=== PATIENT | female | born 1940 | race American Indian/Alaskan Native ===

== ENCOUNTER 2016-12-13 13:45 | Inpatient (IN) | payer MEDICARE, MEDICAID ==
[2016-12-13 13:45] VITALS: BMI 26.8
[2016-12-13] MEDS ORDERED: Sodium Chloride 0.9% 1,000 ML IV STA (14:28)
[2016-12-13 14:52] LABS: VENOUS BLOOD GAS BASE EXCESS 2.6 mmol/L (0.0-2.0); VENOUS BLOOD GAS PO2 39 mm/Hg (30-55); VENOUS BLOOD PH 7.34 (7.32-7.43)
--- NOTE | 2016-12-13 14:55 | ED PDOC ---
Arrival/HPI - General Historian: Patient, Family (daughter in law) - History of Present Illness Time/Duration: Other (last night) Symptom Onset: Sudden Symptom Course: Worsening Context: Home <Heidy Perez - Last Filed: 12/13/16 17:18> <Jackson Garrett - Last Filed: 12/13/16 17:54> - General Chief Complaint: Altered Mental Status Time Seen by Provider: 12/13/16 14:09 - History of Present Illness Narrative History of Present Illness (Text): 12/13/16 14:49 Patient is a 76 y/o with pmh of dementia, liver cirrhosis, htn, afib/aflutter, gastroporesis and degenerative arthritis sent by PMD secondary to recurrent hallucination and delusion. As per patient's daughter in law, patient has a h/o delusions and hallucination, and was admitted in 06/09 for the same symptoms. Patient was discharged with Haldol. Then last night the symptom reoccurred. Patient was seeing things that are not there and was not making sense. Patient is currently a&ox3, c/o lower back pain. Patient admits to feeling a little light headed and dizzy. patient denies headache, denies falls, denies fever or chills. Patient admits to cough productive with whitish sputum . Patient denies abdominal pain, denies dysuria. Denies lack of appetite or lack or sleep. Patient is not aware of her delusions and hallucinations. (Heidy Perez) Past Medical History - Provider Review Nursing Documentation Reviewed: Yes - Travel History Have you recently traveled outside [place] w/in the past 3 mons?: No - Infectious Disease Hx of Infectious Diseases: None - Tetanus Immunization Tetanus Immunization: Unknown - Cardiac Hx Cardiac Disorders: Yes Hx Cardiac Arrhythmia: Yes Hx Hypertension: Yes - Pulmonary Hx Respiratory Disorders: No - Neurological Hx Neurological Disorder: Yes Hx Dementia: Yes Hx Dizziness: Yes - HEENT Hx HEENT Disorder: Yes Hx Glaucoma: Yes Other/Comment: wears glasses - Renal Hx Renal Disorder: No - Endocrine/Metabolic Hx Endocrine Disorders: Yes Hx Diabetes Mellitus Type 2: Yes - Hematological/Oncological Hx Blood Disorders: Yes Hx Cirrhosis: Yes - Integumentary Hx Dermatological Disorder: No - Musculoskeletal/Rheumatological Hx Falls: Yes - Gastrointestinal Hx Gastrointestinal Disorders: Yes (GASTROPARESIS,GASTROENTERITIS) Hx Gastroesophageal Reflux: Yes - Genitourinary/Gynecological Hx Genitourinary Disorders: No - Psychiatric Hx Anxiety: Yes Hx Depression: Yes Hx Panic Disorder: Yes Hx Substance Use: No - Past Surgical History Past Surgical History: Unable to Obtain - Surgical History Hx Orthopedic Surgery: Yes - Anesthesia Hx Anesthesia Reactions: No Hx Malignant Hyperthermia: No - Suicidal Assessment Feels Threatened In Home Enviroment: No <Heidy Perez - Last Filed: 12/13/16 17:18> Family/Social History - Physician Review Nursing Documentation Reviewed: Yes Family/Social History: No Known Family HX Smoking Status: Unknown If Ever Smoked Hx Alcohol Use: Yes Hx Substance Use: No Hx Substance Use Treatment: No <Heidy Perez - Last Filed: 12/13/16 17:18> Allergies/Home Meds <Heidy Perez - Last Filed: 12/13/16 17:18> <Jackson Garrett - Last Filed: 12/13/16 17:54> Allergies/Adverse Reactions: Allergies acetaminophen Allergy (Verified 12/13/16 13:54) NAUSEA aspirin Allergy (Verified 12/13/16 13:54) gi bleed bee pollen Allergy (Verified 12/13/16 13:54) ANAPHYLAXIS haloperidol [From Haldol] Allergy (Verified 12/13/16 13:54) hallucinations haloperidol lactate [From Haldol] Allergy (Verified 12/13/16 13:54) hallucinations Penicillins Allergy (Verified 12/13/16 13:54) RASH Review of Systems - Review of Systems Constitutional: Normal Eyes: Normal ENT: Normal Respiratory: Cough, Sputum (white). absent: SOB, Wheezing Cardiovascular: Normal Gastrointestinal: Normal Genitourinary Female: Normal Musculoskeletal: Normal, Back Pain Skin: Normal Neurological: Dizziness. absent: Headache, Focal Weakness, Gait Changes, Facial Droop, Disequilibrium, Seizure Endocrine: Normal Hemo/Lymphatic: Normal Psychiatric: Other (hallucination and delusions) <Heidy Perez - Last Filed: 12/13/16 17:18> Physical Exam Finger Stick Blood Glucose: 104 <Heidy Perez - Last Filed: 12/13/16 17:18> Medical Decision Making <Heidy Perez - Last Filed: 12/13/16 17:18> - Lab Interpretations I have reviewed the lab results: Yes <Jackson Garrett - Last Filed: 12/13/16 17:54> ED Course and Treatment: 12/13/16 14:59 Patient is a 76 y/o with pmh of dementia, liver cirrhosis, htn, afib/aflutter, gastroporesis and degenerative arthritis sent by PMD secondary to hallucination and delusion. Differentials: Mental status changes secondary to infection/sepsis, r/o CVA, r/ o hepatic encephalopathy. Plan: cbc, cmp, ammonia level, ua bcx, ekg, chest x-ray , alcohol and tylenol and asa level, CT head w/o contrast. 1 L ns labetalol 10 mg iv for htn 12/13/16 17:19 Patient's BP improved to 154/74 after the labetalol. Patient has yeast in her urinalysis, however patient denies vaginal discharge, and denies dysuria. Normal tox screen, ammonia level is less than 9. Basci labs were normal. Psych consulted to evaluate patient. (Heidy Perez) Patient seen and examined with resident. Came up with treatment and disposition plan with resident. The patient is a 76 year old female who is sent into the emergency department for recurrent hallucination and delusion. Patient daughter in law states patient has been intermittently agitated and confused. Additional HPI detail as noted by the resident. On physical examination patient is hypertensive otherwise not other acute findings. EKG, HEAD CT, Chest X-ray, lab work and Urinalysis ordered. Patient given IV Fluids. EKG shows normal sinus rhythm at 69 BPM with sinus arrhythmia and 1st degree AV block. Interpreted by me. 12/13/16 16:36 Labs reviewed. WBC nl. UA negative. CXR negative. No suspicion for infection at this time. CT Head negative and no longer dizziness or lightheaded. Not likely CVA or TIA. Ammonia negative. Not hepatic encephalopathy. Patient with a history of similar behavior and it was do to psych issues. HTN improved with medication. Patient comfortable and in no distress. She is medically cleared for psychiatric evaluation. PES was called and pending consult. 12/13/16 17:53 Case discussed with PES Screener and patient will be admitted to Dr. Darnell for Dementia with Behavioral disturbances. (Jackson Garrett) - Lab Interpretations Lab Results: 12/13/16 14:30 12/13/16 14:30 Lab Results 12/13/16 16:22: Ammonia < 9 L 12/13/16 15:40: Urine Color Yellow, Urine Appearance Clear, Urine pH 6.0, Ur Specific Waldron 1.020, Urine Protein Trace H, Urine Glucose (UA) Negative, Urine Ketones Negative, Urine Blood Negative, Urine Nitrate Negative, Urine Bilirubin Negative, Urine Urobilinogen 1.0 H, Ur Leukocyte Esterase Negative, Urine RBC 0 - 2, Urine WBC 0 - 2, Ur Epithelial Cells 1 - 3, Amorphous Sediment Small, Urine Bacteria Many, Urine Other Uyeast 12/13/16 14:30: Acetaminophen < 10.0 L 12/13/16 14:30: Salicylates < 1 L 12/13/16 14:30: PT 11.5, INR 1.06, APTT 26.8 12/13/16 14:30: TSH 3rd Generation 3.73, Alcohol, Quantitative < 10 12/13/16 14:30: pO2 39, VBG pH 7.34, VBG pCO2 55.0, VBG HCO3 29.7 H, VBG O2 Sat (Calc) 72.1 H, VBG Base Excess 2.6 H 12/13/16 14:30: Sodium 132, Potassium 3.7, Chloride 98, Carbon Dioxide 27, Anion Gap 11, BUN 8, Creatinine 0.7, Est GFR ( Amer) > 60, Est GFR (Non- Af Amer) > 60, Random Glucose 91, Calcium 9.3, Phosphorus 3.4, Magnesium 1.7, Total Bilirubin 0.4, AST 25, ALT 17, Alkaline Phosphatase 60, Lactate Dehydrogenase 352, Total Creatine Kinase 38, Troponin I < 0.01, Total Protein 7.3, Albumin 4.0, Globulin 3.2, Albumin/Globulin Ratio 1.3 12/13/16 14:30: WBC 5.5, RBC 3.78, Hgb 10.9 L, Hct 30.0 L, MCV 79.4 L, MCH 28.8 , MCHC 36.3, RDW 13.8, Plt Count 128, MPV 8.8, Gran % 56.9, Lymph % (Auto) 34.1 , [place] % (Auto) 7.5 H, Eos % (Auto) 1.3 L, Baso % (Auto) 0.2, Gran # 3.12, Lymph # 1.9, [place] # 0.4, Eos # 0.1, Baso # 0.01 - RAD Interpretation Radiology Orders: 12/13/16 14:27 CHEST PORTABLE [RAD] Stat 12/13/16 15:10 HEAD W/O CONTRAST [CT] Stat - Medication Orders Current Medication Orders: Discontinued Medications Acetaminophen (Tylenol 325mg Tab) 650 mg PO STAT STA Stop: 12/13/16 15:09 Sodium Chloride (Sodium Chloride 0.9%) 1,000 mls @ 999 mls/hr IV .Q1H1M STA Stop: 12/13/16 15:28 Last Admin: 12/13/16 14:44 Dose: 999 mls/hr Labetalol HCl (Trandate) 10 mg IV STAT STA Stop: 12/13/16 15:01 Last Admin: 12/13/16 15:30 Dose: 10 mg Labetalol HCl (Trandate) Confirm Administered Dose 100 mg .ROUTE .STK-MED ONE Stop: 12/13/16 15:13 Last Admin: 12/13/16 15:40 Dose: <Heidy Perez - Last Filed: 12/13/16 17:18> - PA / CERAMIC TILE INSTALLER / Resident Statement MD/DO has reviewed & agrees with the documentation as recorded. MD/DO has examined the patient and agrees with the treatment plan. - Scribe Statement The provider has reviewed the documentation as recorded by the Scribe <Jackson Garrett - Last Filed: 12/13/16 17:54> - Scribe Statement Any Tucker Provider Scribe Attestation: All medical record entries made by the Scribe were at my direction and personally dictated by me. I have reviewed the chart and agree that the record accurately reflects my personal performance of the history, physical exam, medical decision making, and the department course for this patient. I have also personally directed, reviewed, and agree with the discharge instructions and disposition. (Jackson Garrett) Disposition/Present on Arrival - Present on Arrival History of DVT/PE: No History of Uncontrolled Diabetes: No Urinary Catheter: No History of Decub. Ulcer: No History Surgical Site Infection Following: None <Heidy Perez - Last Filed: 12/13/16 17:18> - Present on Arrival Any Indicators Present on Arrival: No - Disposition Have Diagnosis and Disposition been Completed?: Yes Disposition Time: 17:54 Patient Plan: Admission <Jackson Garrett - Last Filed: 12/13/16 17:54> - Disposition Diagnosis: Dementia Disposition: HOSPITALIZED Condition: FAIR Referrals: Jay Yang MD [Primary Care Provider] - Follow up with primary
[2016-12-13] MEDS ORDERED: Labetalol 5 mg/ml Inj 20ML IV STA (15:00)
[2016-12-13 15:04] LABS: ALB/GLOB RATIO 1.3 (1.1-1.8); ALT/SGPT 17 U/L (7-56); AST/SGOT 25 U/L (15-39); BASO # 0.01 K/mm3 (0.0-2.0); BASO % 0.2 % (0.0-3.0); BLOOD UREA NITROGEN 8 mg/dL (7-21); CALCIUM 9.3 mg/dL (8.4-10.5); EOS # 0.1 (0.0-0.7); EOS % 1.3 % (1.5-5.0); GFR AFRICAN-AMERICAN > 60; GFR NON-AFRICAN AMERICAN > 60; GRAN # 3.12 (1.4-6.5); GRAN % 56.9 % (50.0-68.0); HEMOGLOBIN 10.9 gm/dL (12.0-16.0); LYMPH # 1.9 (1.2-3.4); LYMPH % 34.1 % (22.0-35.0); MAGNESIUM 1.7 mg/dL (1.7-2.2); MEAN CELL VOLUME 79.4 fL (80.0-105.0); MEAN CORPUSCULAR HEMOGLOBIN 28.8 pg (25.0-35.0); MEAN CORPUSCULAR HGB CONC 36.3 g/dl (31.0-37.0); MEAN PLATELET VOLUME 8.8 fl (7.0-11.0); MONO # 0.4 (0.1-0.6); MONO % 7.5 % (1.0-6.0); PLATELET COUNT 128 10^3/uL (120.0-450.0); RBC 3.78 10^6/uL (3.5-6.1); RED CELL DISTRIBUTION WIDTH 13.8 % (11.5-14.5); WHITE BLOOD COUNT 5.5 10^3/ul (4.5-11.0)
--- NOTE | 2016-12-13 15:09 | RAD ---
HISTORY: Cough COMPARISON: 06/19/2016 FINDINGS: LUNGS: The lungs are well inflated and clear. PLEURA: No significant pleural effusion identified, no pneumothorax apparent. CARDIOVASCULAR: Normal. OSSEOUS STRUCTURES: No significant abnormalities. VISUALIZED UPPER ABDOMEN: Normal. OTHER FINDINGS: None. IMPRESSION: No active pulmonary disease.
[2016-12-13 15:11] LABS: INR 1.06 (0.93-1.08); PARTIAL THROMBOPLASTIN TIME 26.8 Seconds (23.7-30.8); PROTHROMBIN TIME 11.5 Seconds (9.9-11.8)
[2016-12-13] MEDS ORDERED: Labetalol 5 mg/ml Inj 20ML ONE (15:12)
[2016-12-13 15:19] LABS: TROPONIN I < 0.01 ng/mL
[2016-12-13 15:48] LABS: URINE APPEARANCE CLEAR (CLEAR); URINE BILIRUBIN NEGATIVE (NEGATIVE); URINE BLOOD NEGATIVE (NEGATIVE); URINE COLOR YELLOW (YELLOW); URINE GLUCOSE (UA) NEGATIVE (NEGATIVE); URINE LEUKOCYTE ESTERASE NEGATIVE Leu/uL (NEGATIVE); URINE NITRATE NEGATIVE (NEGATIVE); URINE PROTEIN TRACE mg/dL (<30 mg/dL)
[2016-12-13 15:54] LABS: URINE RBC 0 - 2 /hpf (0-2); URINE WBC 0 - 2 /hpf (0-6)
[2016-12-13 15:55] LABS: URINE AMORPHOUS SEDIMENT SMALL; URINE BACTERIA MANY (NEG)
--- NOTE | 2016-12-13 15:58 | CT ---
PROCEDURE: CT HEAD WITHOUT CONTRAST. HISTORY: AMS COMPARISON: None available. TECHNIQUE: Axial computed tomography images were obtained through the head/brain without intravenous contrast. Radiation dose: Total exam DLP = 689 mGy-cm. This CT exam was performed using one or more of the following dose reduction techniques: Automated exposure control, adjustment of the mA and/or kV according to patient size, and/or use of iterative reconstruction technique. FINDINGS: HEMORRHAGE: No intracranial hemorrhage. BRAIN: No mass effect or edema. No atrophy or chronic microvascular ischemic changes. VENTRICLES: Unremarkable. No hydrocephalus. CALVARIUM: Unremarkable. PARANASAL SINUSES: Unremarkable as visualized. No significant inflammatory changes. MASTOID AIR CELLS: Unremarkable as visualized. No inflammatory changes. OTHER FINDINGS: None. IMPRESSION: Normal CT of the Head.
[2016-12-13 17:19] VITALS: O2SAT 96
--- NOTE | 2016-12-13 21:47 | PCM.PSYCH ---
Initial Psychiatric Evaluation - Initial Psychiatric Evaluation Legal Status: Capacity Chief Complaint (in patient's own words): I don' Know why I am Here Patient's Reaction to Hospitalization: Indifferent History of Present Illness and Precipitating Events: According to Er Record patient wa seeing things and hearing things that were not there. Patient denies this. Current Medications: Patient unaware of names of any medications. She knows they are tranqilers, but doesn' take them. Was given Labetol in ER. Past Psychiatric History - Past Psychiatric History Prior Psychiatric Treatment: Hosp here [place]2016 [id number] [facility] [place] [facility] [place] of ETOH/Drug Use: none History of Family Illness: Daughter 2 years ago frm [place] of lung. in 1991 Pertinent Medical Hx (Current Medical&Sleep Prob, Allergies): Allergies Allergy/AdvReac Type Severity Reaction Status Date / Time acetaminophen Allergy NAUSEA Verified 12/13/16 13:54 aspirin Allergy gi bleed Verified 12/13/16 13:54 bee pollen Allergy ANAPHYLAXIS Verified 12/13/16 13:54 haloperidol [From Haldol] Allergy hallucinati Verified 12/13/16 13:54 ons haloperidol lactate Allergy hallucinati Verified 12/13/16 13:54 [From Haldol] ons Penicillins Allergy RASH Verified 12/13/16 13:54 Risperidone [Risperdal] 0.25 mg PO BID #60 tablet 06/24/16 Ziprasidone [Geodon] 40 mg PO BID #60 cap 06/24/16 diltiaZEM CD [Cardizem CD] 120 mg PO DAILY #30 06/24/16
--- NOTE | 2016-12-13 21:49 | PCM.PSYCH ---
Initial Psychiatric Evaluation - Initial Psychiatric Evaluation Legal Status: Capacity Chief Complaint (in patient's own words): I don' Know why I am Here Patient's Reaction to Hospitalization: Indifferent History of Present Illness and Precipitating Events: According to Er Record patient wa seeing things and hearing things that were not there. Patient denies this. Current Medications: Active Medications Generic Name Dose Route Start Last Admin Trade Name Freq PRN Reason Stop Dose Admin Metoclopramide HCl 5 mg 12/14/16 08:00 Reglan PO BID GRETA Risperidone 0.25 mg 12/13/16 21:42 Risperdal Tab PO Q4H PRN Agitation Zaleplon 5 mg 12/13/16 21:41 Sonata PO HS PRN Insomnia Past Psychiatric History - Past Psychiatric History Prior Psychiatric Treatment: Hosp here 05/2016 [id number] At [facility]: [facility] Pertinent Medical Hx (Current Medical&Sleep Prob, Allergies): Allergies Allergy/AdvReac Type Severity Reaction Status Date / Time acetaminophen Allergy NAUSEA Verified 12/13/16 13:54 aspirin Allergy gi bleed Verified 12/13/16 13:54 bee pollen Allergy ANAPHYLAXIS Verified 12/13/16 13:54 haloperidol [From Haldol] Allergy hallucinati Verified 12/13/16 13:54 ons haloperidol lactate Allergy hallucinati Verified 12/13/16 13:54 [From Haldol] ons Penicillins Allergy RASH Verified 12/13/16 13:54 Risperidone [Risperdal] 0.25 mg PO BID #60 tablet 06/24/16 Ziprasidone [Geodon] 40 mg PO BID #60 cap 06/24/16 diltiaZEM CD [Cardizem CD] 120 mg PO DAILY #30 06/24/16
--- NOTE | 2016-12-13 22:33 | HP ---
HISTORY OF PRESENT ILLNESS: The patient is a 76-year-old female brought to the Emergency Room apparently by family. Reported to the staff in the ER that she had been seeing things and hearing things last night, even though patient denies all this. The patient states at times she gets anxious and she is depressed since her daughter 2 years ago. PAST MEDICAL HISTORY: She has previous psychiatric hospitalizations here in 2015 and in 2012. She has had multiple medical problems, including AFib with rapid ventricular rate. She has history of osteoarthritis, history of positive dementia. She has a history of previous psychotic symptomatology. The patient has a history also of hypertension. She has a history of hyperlipidemia, diet- controlled diabetes, gastroparesis, nonobstructive coronary artery disease. HOME MEDICATIONS: Include supposedly Geodon 40 mg twice a day and Risperdal 0.5 mg b.i.d. The patient states she does not take any of these. She also has Xalatan eyedrops which she has not been taking. She has a history of taking Reglan 5 mg twice a day. The patient has taken p.r.n. tramadol for arthritic pain. PERSONAL HISTORY: She lives alone in public housing. She has a grandson and granddaughter plus 5 grandchildren. She has a daughter who 2 years ago from [place] of the lung. Her in the early . The patient supposedly has a history of cirrhosis, but her laboratory data is normal. LABORATORY DATA: As follows: Her white count is 5500, hemoglobin of 10.9, platelet count 128,000. The patient's metabolic profile was all totally within normal range. Ammonia level was less than 9. TSH 3.73. The patient's urine is clear with a trace of protein and many bacteria. The patient's blood gases, the pO2 is 39, venous pH of 7.34, pCO2 55. Venous O2 saturation 92.1%. Her urine for toxicology, she had no alcohol in her system. The patient's EKG showed first degree AV block and irregular sinus rhythm. She had chest x-ray, showed no active disease. CAT scan of the head showed no atrophy, hemorrhage, or microvascular disease, according to interpretation. CURRENT REVIEW OF SYSTEMS: GENERAL: The patient states she has a history of slight dizziness at times, . EENT: She has occasional blurriness. She was once told she has glaucoma, but she is not taking any drops. PULMONARY: No complaints , has not smoked for several years.CARDIOVASCULAR: No Chest pain,SOB The patient has been told she has hypertension,GI: has had liver problems. No abdominal pain : No bleeding SKIN: No rashes. MUSCULOSKELETAL: She has pain in her back, pain in her knees.NEUROLOGICAL: The patient says at times she gets a slight tremor and some unsteadiness of gait. Problems with memory. PSYCHIATRIC : Nervousness at times. PHYSICAL EXAMINATION: VITAL SIGNS: Blood pressure of 154/74, pulse 80, respirations 18 per minute, O2 saturation 96%. HEAD: Normocephalic. EYES, EARS, NOSE, AND THROAT: EOMs full, no nystagmus. Vision and hearing appear normal. NECK: Supple. No bruits. LUNGS: Clear. HEART: Irregular/irregular rhythm. ABDOMEN: Soft, nontender. EXTREMITIES: No clubbing or edema. NEUROMUSCULAR: Her gait is somewhat slow with some slightly broad-based gait. SKIN: No abnormal pigmentations. GENITOURINARY: No CVA tenderness. NEUROLOGIC: Cranial nerves II-XII intact. Tongue, full range of motion. Shoulder shrug normal. No nystagmus. EOMs full. Tongue, no dyskinetic movements. The patient's sensory findings appear intact. No pathological reflexes. Babinskis down. PSYCHIATRIC MENTAL STATUS: She is awake, she is alert, slightly anxious, somewhat worried and confused as to why she is here. She is totally oriented x 3. Spells the words "world" and "house" forward and reverse. Recalls 1 of 3 objects after 5 minutes. Denies hallucinations or paranoia. Admits being depressed. There is no suicidal ideation. Currently has no hallucinations, no delusions. The patient's fund of knowledge is low normal. The patient's judgment and insight appear questionable, although she appears alert and coherent and able to carry on a rational conversation. IMPRESSION: The patient has probable mild neurocognitive impairment, history of psychotic symptoms in the past, none now. She has a history of hypertension , history of atrial fibrillation, history of first degree atrioventricular block , history of osteoarthritis, history in the past of glaucoma. Positive personal strengths are loyalty to family and cooperative with care. PLAN: We will keep under close observation, q. 15 minutes. Will order Reglan. Will order p.r.n. Risperdal for now. Will order p.armando.arleen. Nicolasata for sleep. Will get medical on cardiological consults with her attending physician, Dr. Yang, and Dr. Thurman, and I will discuss with staff. Estimated length of stay is five days. Criteria for discharge: Clear sensorium. Lars Darnell MD cc: [id number] TT: 12/13/2016 22:32:43 crystal MTDArmaan
--- NOTE | 2016-12-13 23:33 | CARD ---
APPROVED REPORT EKG Measurement Heart [id number] <Conclusion> Sinus rhythm with marked sinus arrhythmia with 1st degree AV block Otherwise normal ECG
[2016-12-14 08:20] LABS: FREE T4 1.06 ng/dL (0.78-2.19)
--- NOTE | 2016-12-14 12:31 | PCM.BM ---
<Candy Payne - Last Filed: 12/14/16 12:25> Treatment Plan Problems - Problems identified on initial assessmt delusion Date Initiated: 12/14/16 Time Initiated: 12:32 Assessment reference: NA Status: Active Priority: 1 Treatment assets and liabiliti Patient Assests: cooperative, negotiates basic needs Patient Liabilities: live alone, imparied memory - Milieu Protocol Maintain good personal hygiene: daily Encourage regular showers, every shift Remind patient to perform daily oral care, every shift Assist patient to perform ADL's Conduct patient checks and document Observation sheet: Q15 minutes Maintain personal safety: every shift Educate patient to report safety concerns to staff, every shift Monitor environment for contraband/sharps Medication safety: Monitor for expected outcome, potential side effects: every shift, Assess barriers to learning: every shift, Assess readiness for medication education: every shift <Jazmín Webber - Last Filed: 12/20/16 08:24> Family Contact Family involvement: Family/SO is involved Family contact: Patient agrees to contact Family contact name: Kurtis Royal(grandchildren) Family contacted how many times per week?: 2 - Goals for Treatment Patient goals for treatment: "To get back to normal."
--- NOTE | 2016-12-14 19:28 | PCM.PYCHPN ---
Psychiatric Progress Note - Psychiatric Progress Note Patient seen today, length of contact: 15 minutes Patient Chief Complaint: I don' Know why I am Here DSM 5 Symptoms Update: Recent memory impairment and anxiety Medication Change: Yes Medical Record Reviewed: Yes Consults ordered or reviewed: Dr. Thurman and Dr. Yang Mental Status Examination - Cognitive Function Orientation: Person, Place, Situation, Time Memory: Impaired Attention: WNL Concentration: WNL Association: WNL Fund of Knowledge: WN Decription of patient's judgement and insights: Judgement and insight fair. - Mood Mood: Depressed, Anxious - Affect Affect: Flat - Homicidal Ideation Homicidal Ideation: No
--- NOTE | 2016-12-14 20:43 | PN ---
DATE: 12/14/2016 HISTORY OF PRESENT ILLNESS: The patient is a 76-year-old female brought to the Emergency Room yester day by her grandson. According to ER notes, the patient was supposedly paranoid, hearing voices. My history taking yesterday and again today, there is no evidence of this. She has some impairment in recent memory. She denies any hallucinations at this point. She complains of anxiety, nervousness. She appears somewhat depressed. No suicidal ideation. Recalls 2-3 objects after 3 minutes, oriente d x 3. The patient walked slowly with the use of a walker. According to nurses notes, slept through the night. CURRENT MEDICATIONS: Include Risperdal 0.25 mg q. 4 hours p.r.n., Sonata 5 mg at bedtime p.r.n. She is also on diltiazem 30 q.i.d. today and 120 p.o. daily starting tomorrow. She is also on Reglan 5 mg b.i.d. LABORATORY DATA: No new laboratory data to report except for vitamin D level of 26.5. Her TSH, T3, T4 are all within normal range. B12 is 385. Ammonia level is less than 9. The patient was seen in consultation by a chief controller center yesterday and today and was reviewed and appre ciated. VITAL SIGNS: Blood pressure is 131/61, pulse 62, respirations 20 per minute and afebrile. IMPRESSION: Mild neurocognitive impairment, a supposed history in the past of psychotic symptomatolo gy, none apparent now. She has generalized anxiety, mild to moderate depression. The patient has a history of first degree arteriovenous block, atrial fibrillation, hypertension. She also has a histo ry of mild dementia. PLAN: We will order Ativan 1.5 mg t.i.d. for anxiety. Will order Remeron 15 mg at bedtime for depre ssed mood, insomnia. We will monitor closely mental status. Also will order vitamin D 2000 Internat ional Units daily and will continue under close observation. Lars Darnell MD cc: [phone] TT: 12/14/2016 20:42:28 Confirmation # [id number] Dictation # [id number] rn
--- NOTE | 2016-12-14 20:59 | CP.PCM.PCO ---
Physician Communication Note - Physician Communication Note Physician Communication Note: Not eating(40#loss)/Not taking meds-worsening @ home
--- NOTE | 2016-12-14 21:35 | CON ---
DATE: 12/14/2016 REASON FOR CONSULTATION: Cardiac evaluation, history of paroxysmal atrial fibrillation, abnormal EKG , admitted to psych floor with behavioral disturbance. BRIEF CLINICAL HISTORY: This is a 76-year-old female with a past medical history of hypertension; di abetes, diet controlled; depression; dementia; gastroparesis; history of paroxysmal atrial fibrillati on, now in the 90s, normal sinus, admitted to psychiatric floor with behavioral disturbance and possi ble dementia. Cardiology consult was called. The patient denies any chest pain, shortness of breath , any palpitation. PAST MEDICAL HISTORY: Significant for hypertension, diabetes, hypertension, hyperlipidemia, depressi on, dementia and gastroparesis. MOST RECENT CARDIAC WORKUP FOLLOWS: The patient had a stress test 05/30/2013 that was abnormal du e to the cardiac catheterization that shows nonobstructive coronary artery disease. The patient had echocardiography at 06/22/2016 that showed ejection fraction 55%, normal LV function, mild tricuspid regurgitation, right ventricular systolic pressure of 35, mild ____ noted in some views, calculated R VSP 35. SOCIAL HISTORY: ____ Denies any history of alcohol abuse. CURRENT MEDICATIONS: The patient at home was taking Cardizem-CD 120 mg daily, Geodon 40, Risperdal 0 .25 mg daily. REVIEW OF SYSTEMS: As per HPI. PHYSICAL EXAMINATION: VITAL SIGNS: Temperature afebrile, heart rate 60, blood pressure 130/____. HEENT: PERRLA. Extraocular muscles intact. NECK: Supple. No carotid bruits. No thyromegaly. CHEST: Clear to auscultation. HEART: S1, S2 regular. ABDOMEN: Soft. EXTREMITIES: Without clubbing and cyanosis negative. BLOOD WORKUP: WBC 5.5, hemoglobin 10.9, hematocrit 30.0, platelet count 128. Chemistry shows sodium ____, potassium 3. ____, chloride 98, carbon dioxide 27, anion gap of 8, BUN 11, creatinine 0.7. EK G shows ____ marked sinus arrhythmia, 1st degree AV block. IMPRESSION: History of paroxysmal atrial fibrillation with the patient admitted. This is a 76-year- old female with history of paroxysmal atrial fibrillation when the patient admitted in 06/21/2016 wit h atrial fibrillation converted to normal sinus after IV drip, since the patient discharged on p.o. C ardizem. History of hypertension, hyperlipidemia. Denies any chest pain. Echo shows preserved left ventricular function, ejection fraction 65% dated 06/22/2016. History of abnormal stress test 2012, status post cardiac catheterization followed the stress test, preserved left ventricular function, m ild tricuspid regurgitation, right ventricular systolic pressure of 35. RECOMMENDATION: Will get lipid profile, TSH, hemoglobin A1c. We will restart Cardizem. Follow with you. Thank you, Dr. Darnell, for providing the opportunity in taking care of the patient. Ellen Slater MD cc: [id number] TT: 12/14/2016 21:34:53 Confirmation # [id number] Dictation # [id number] jn
[2016-12-15 07:58] LABS: BASO # 0.01 K/mm3 (0.0-2.0); BASO % 0.2 % (0.0-3.0); EOS # 0.1 (0.0-0.7); GRAN # 2.47 (1.4-6.5); HEMOGLOBIN 9.9 gm/dL (12.0-16.0); LYMPH # 1.6 (1.2-3.4); LYMPH % 35.7 % (22.0-35.0); MEAN CORPUSCULAR HEMOGLOBIN 28.5 pg (25.0-35.0); MEAN CORPUSCULAR HGB CONC 36.1 g/dl (31.0-37.0); MEAN PLATELET VOLUME 8.1 fl (7.0-11.0); MONO # 0.4 (0.1-0.6); MONO % 8.1 % (1.0-6.0); PLATELET COUNT 106 10^3/uL (120.0-450.0); RBC 3.47 10^6/uL (3.5-6.1); RED CELL DISTRIBUTION WIDTH 13.6 % (11.5-14.5); WHITE BLOOD COUNT 4.6 10^3/ul (4.5-11.0)
[2016-12-15 08:12] LABS: ALB/GLOB RATIO 1.1 (1.1-1.8); ALBUMIN 3.2 g/dL (3.0-4.8); ALT/SGPT 18 U/L (7-56); AST/SGOT 21 U/L (15-39); BLOOD UREA NITROGEN 7 mg/dL (7-21); CALCIUM 8.7 mg/dL (8.4-10.5); GFR AFRICAN-AMERICAN > 60; GFR NON-AFRICAN AMERICAN > 60; HDL CHOLESTEROL 74 mg/dL (29-60); MAGNESIUM 1.7 mg/dL (1.7-2.2)
[2016-12-15 08:22] LABS: LDL CHOLESTEROL 88 mg/dL (0-129)
[2016-12-15] MEDS: diltiaZEM 120 mg/24 Hours CD Cap PO SCH (09:00)
[2016-12-15] MEDS: Multivitamin Therapeutic Tab PO SCH (09:00)
--- NOTE | 2016-12-15 09:07 | PCM.PYCHPN ---
Psychiatric Progress Note - Psychiatric Progress Note Patient seen today, length of contact: 25 minutes Patient Chief Complaint: "all right" Problems Identified/Issues Discussed: I reviewed Dr. Crandall's report and recent staff notes. Patient is alert oriented x3. Mood is reported as "all right" and patient indicates anxiety is improving. Patient denies any paranoia and delusions were not elicited during our interview this morning. Patient also denies having any hallucinations and she does not appear to be responding to internal stimuli. Her affect is quiet, preoccupied and mildly guarded. first interview Patient denies having any new discomfort or pain this far. She is tolerating her medications and reports sleeping well last night. There were no behavioral issues overnight. Diagnostic Results: Depression, mild-moderate Generalized anxiety Mild neurocognitive impairment Hx of Psychotic Sx Hx of Mild Dementia Medication Change: No Medical Record Reviewed: Yes (reports, notes, labs, vitals) Mental Status Examination - Cognitive Function Orientation: Person, Place, Situation, Time Memory: Impaired Attention: WNL Concentration: WNL Association: WNL Fund of Knowledge: WNL - Mood Mood: Depressed ("all right"), Anxious - Affect Affect: Flat - Speech Speech: Appropriate - Formal Thought Process Formal Thought Process: Other (mildly guarded) - Suicidal Ideation Suicidal Ideation: No - Homicidal Ideation Homicidal Ideation: No Goal/Treatment Plan - Goal/Treatment Plan Progress Toward Problem(s) and Goals/Treatment Plan: * c/w current tx and plan * Vitals reviewed and noted below: Selected Entries 12/14/16 12/14/16 12/14/16 07:28 16:12 18:16 Temperature 97.9 F Pulse Rate 68 62 62 Respiratory 20 Rate Blood Pressure 119/48 L 132/54 L 131/61 12/14/16 21:48 Temperature Pulse Rate 63 Respiratory Rate Blood Pressure 135/63 * New weekend labs noted below: Laboratory Results - last 24 hr 12/14/16 12/14/16 12/15/16 07:30 07:30 07:52 WBC RBC Hgb Hct MCV MCH MCHC RDW Plt Count MPV Gran % Lymph % (Auto) [place] % (Auto) Eos % (Auto) Baso % (Auto) Gran # Lymph # [place] # Eos # Baso # Sodium 131 L Potassium 3.8 Chloride 100 Carbon Dioxide 26 Anion Gap 9 L BUN 7 Creatinine 0.8 Est GFR ( Amer) > 60 Est GFR (Non-Af Amer) > 60 Random Glucose 79 Calcium 8.7 Phosphorus 3.4 Magnesium 1.7 Total Bilirubin 0.7 AST 21 ALT 18 Alkaline Phosphatase 54 Total Protein 6.1 Albumin 3.2 Globulin 2.9 Albumin/Globulin Ratio 1.1 Triglycerides 41 Cholesterol 178 LDL Cholesterol Direct 88 HDL Cholesterol 74 H Vitamin B12 385 25-OH Vitamin D Total 26.5 L TSH 3rd Generation 12/15/16 12/15/16 07:52 07:52 WBC 4.6 RBC 3.47 L Hgb 9.9 L Hct 27.4 L MCV 79.0 L MCH 28.5 MCHC 36.1 RDW 13.6 Plt Count 106 L MPV 8.1 Gran % 54.0 Lymph % (Auto) 35.7 H [place] % (Auto) 8.1 H Eos % (Auto) 2.0 Baso % (Auto) 0.2 Gran # 2.47 Lymph # 1.6 [place] # 0.4 Eos # 0.1 Baso # 0.01 Sodium Potassium Chloride Carbon Dioxide Anion Gap BUN Creatinine Est GFR ( Amer) Est GFR (Non-Af Amer) Random Glucose Calcium Phosphorus Magnesium Total Bilirubin AST ALT Alkaline Phosphatase Total Protein Albumin Globulin Albumin/Globulin Ratio Triglycerides Cholesterol LDL Cholesterol Direct HDL Cholesterol Vitamin B12 25-OH Vitamin D Total TSH 3rd Generation 2.08
--- NOTE | 2016-12-15 13:57 | PN ---
DATE: 12/15/2016 REASON FOR CONSULTATION AND FOLLOWUP: Cardiac evaluation, history of atrial fibrillation, admitted t o psych floor, abnormal EKG. OBJECTIVE FINDINGS: The patient denies any chest pain, shortness of breath, any palpitation. Lying flat on the bed. PHYSICAL EXAMINATION: VITAL SIGNS: Temperature afebrile, heart rate 65, blood pressure 137/70. HEENT: PERRLA. Extraocular muscles intact. NECK: Supple. No carotid bruits. No thyromegaly. CHEST: Clear to auscultation. HEART: S1, S2 regular. ABDOMEN: Soft. EXTREMITIES: Clubbing and cyanosis negative. LABORATORY DATA: Blood workup as follows: WBC 4.6, hemoglobin 9.1, hematocrit 27.7, platelet count 106. Chemistry shows sodium 131, potassium 3.0, chloride 100, carbon dioxide 26, anion gap of 9, BUN 7, creatinine 0.8. Total protein 6.0, albumin 3.2, albumin/globulin ratio 1.1. Triglycerides 41, c holesterol 178, LDL 88, HDL 74. TSH 2.08. IMPRESSION: A 76-year-old female with a past medical history of hypertension; diabetes, diet control led; gastroparesis, dementia, history of paroxysmal atrial fibrillation, now is in normal sinus. To Admitted psychiatric floor for the behavioral disorder and dementia. History of paroxysmal atrial fi brillation. When the patient was admitted 06/21/2016 converted to normal sinus. At that time, echo shows 06/22/2016 preserved left ventricle function, ejection fraction 63%. The patient had a cardiac catheterization in 2002 when the patient had abnormal stress test that shows nonobstructive coronary artery disease, preserved left ventricular function, ejection fraction 60%. RECOMMENDATION: We will start Cardizem, continue psych care. The patient is cleared from cardiology point of view to continue psych treatment. No contraindication. We will follow with you. Ellen Slater MD cc: [id number] TT: 12/15/2016 13:57:31 Confirmation # [id number] Dictation # [id number] tn
[2016-12-15 19:33] LABS: FOLATE 11.4 ng/mL
--- NOTE | 2016-12-16 08:39 | PCM.PYCHPN ---
Psychiatric Progress Note - Psychiatric Progress Note Patient seen today, length of contact: 25 minutes Patient Chief Complaint: "all right" Problems Identified/Issues Discussed: I reviewed recent staff notes and met with patient at bedside. Patient remains alert and oriented x3. Mood is reported as "all right" and patient indicates anxiety is "pretty controlled". She denies any paranoia and delusions are not elicited during our two interviews this weekend. Patient also denies having any hallucinations. She does not appear to be responding to internal stimuli. Her affect is quiet, preoccupied and a little less guarded than yesterday. Patient denies having any new discomfort or pain thus far. She is tolerating her medications and reports sleeping well again. She has been pleasant with staff and there were no behavioral issues over the weekend. Diagnostic Results: Depression, mild-moderate Generalized anxiety Mild neurocognitive impairment Hx of Psychotic Sx Hx of Mild Dementia Medication Change: No Medical Record Reviewed: Yes (reports, notes, labs, vitals) Mental Status Examination - Cognitive Function Orientation: Person, Place, Situation, Time Memory: Impaired Attention: WNL Concentration: WNL Association: WNL Fund of Knowledge: WNL - Mood Mood: Depressed ("all right"), Anxious - Affect Affect: Flat - Speech Speech: Appropriate - Formal Thought Process Formal Thought Process: Other (mildly guarded) - Suicidal Ideation Suicidal Ideation: No - Homicidal Ideation Homicidal Ideation: No Goal/Treatment Plan - Goal/Treatment Plan Progress Toward Problem(s) and Goals/Treatment Plan: * c/w current tx and plan * Appreciate f/u by Dr. Slater on 12/15/16~initiated [facility] * Vitals reviewed and noted below: Selected Entries 12/15/16 12/15/16 12/15/16 07:00 09:00 16:57 Temperature 98.1 F Pulse Rate 61 101 H 64 Respiratory 20 Rate Blood Pressure 137/70 134/70 135/68 * New weekend labs noted below: Laboratory Results - last 24 hr 12/14/16 12/14/16 12/15/16 07:30 07:30 07:52 WBC RBC Hgb Hct MCV MCH MCHC RDW Plt Count MPV Gran % Lymph % (Auto) [place] % (Auto) Eos % (Auto) Baso % (Auto) Gran # Lymph # [place] # Eos # Baso # Sodium 131 L Potassium 3.8 Chloride 100 Carbon Dioxide 26 Anion Gap 9 L BUN 7 Creatinine 0.8 Est GFR ( Amer) > 60 Est GFR (Non-Af Amer) > 60 Random Glucose 79 Calcium 8.7 Phosphorus 3.4 Magnesium 1.7 Total Bilirubin 0.7 AST 21 ALT 18 Alkaline Phosphatase 54 Total Protein 6.1 Albumin 3.2 Globulin 2.9 Albumin/Globulin Ratio 1.1 Triglycerides 41 Cholesterol 178 LDL Cholesterol Direct 88 HDL Cholesterol 74 H Vitamin B12 385 25-OH Vitamin D Total 26.5 L TSH 3rd Generation 12/15/16 12/15/16 07:52 07:52 WBC 4.6 RBC 3.47 L Hgb 9.9 L Hct 27.4 L MCV 79.0 L MCH 28.5 MCHC 36.1 RDW 13.6 Plt Count 106 L MPV 8.1 Gran % 54.0 Lymph % (Auto) 35.7 H [place] % (Auto) 8.1 H Eos % (Auto) 2.0 Baso % (Auto) 0.2 Gran # 2.47 Lymph # 1.6 [place] # 0.4 Eos # 0.1 Baso # 0.01 Sodium Potassium Chloride Carbon Dioxide Anion Gap BUN Creatinine Est GFR ( Amer) Est GFR (Non-Af Amer) Random Glucose Calcium Phosphorus Magnesium Total Bilirubin AST ALT Alkaline Phosphatase Total Protein Albumin Globulin Albumin/Globulin Ratio Triglycerides Cholesterol LDL Cholesterol Direct HDL Cholesterol Vitamin B12 25-OH Vitamin D Total TSH 3rd Generation 2.08
[2016-12-16] MEDS: diltiaZEM 120 mg/24 Hours CD Cap PO SCH (10:49)
[2016-12-16] MEDS: Multivitamin Therapeutic Tab PO SCH (10:49)
[2016-12-17] MEDS: Multivitamin Therapeutic Tab PO SCH (08:34)
[2016-12-17] MEDS: diltiaZEM 120 mg/24 Hours CD Cap PO SCH (08:34)
--- NOTE | 2016-12-17 11:41 | PCM.BM ---
Treatment Plan Problems - Problems identified on initial assessmt delusion Date Initiated: 12/14/16 Time Initiated: 12:32 Assessment reference: NA Status: Active Priority: 1 Problem 1 Date Initiated: 12/17/16 Time Initiated: 11:30 Assessment reference: HP, PE, SW Status: Active Priority: 1 Treatment team patient informa Patient Assests: cooperative, ADL independent, physically healthy, negotiates basic needs Patient Liabilities: live alone, imparied memory - Milieu Protocol Maintain good personal hygiene: daily Encourage regular showers, every shift Remind patient to perform daily oral care, every shift Assist patient to perform ADL's Conduct patient checks and document Observation sheet: Q15 minutes Maintain personal safety: every shift Educate patient to report safety concerns to staff, every shift Monitor environment for contraband/sharps Medication safety: Monitor for expected outcome, potential side effects: every shift, Assess barriers to learning: every shift, Assess readiness for medication education: every shift Milieu Narrative: * c/w current tx and plan * Appreciate f/u by Dr. Slater on 12/15/16~initiated [facility] * Vitals reviewed and noted below: Selected Entries 12/15/16 12/15/16 12/15/16 07:00 09:00 16:57 Temperature 98.1 F Pulse Rate 61 101 H 64 Respiratory 20 Rate Blood Pressure 137/70 134/70 135/68 * New weekend labs noted below: Laboratory Results - last 24 hr 12/14/16 12/14/16 12/15/16 07:30 07:30 07:52 WBC RBC Hgb Hct MCV MCH MCHC RDW Plt Count MPV Gran % Lymph % (Auto) [place] % (Auto) Eos % (Auto) Baso % (Auto) Gran # Lymph # [place] # Eos # Baso # Sodium 131 L Potassium 3.8 Chloride 100 Carbon Dioxide 26 Anion Gap 9 L BUN 7 Creatinine 0.8 Est GFR ( Amer) > 60 Est GFR (Non-Af Amer) > 60 Random Glucose 79 Calcium 8.7 Phosphorus 3.4 Magnesium 1.7 Total Bilirubin 0.7 AST 21 ALT 18 Alkaline Phosphatase 54 Total Protein 6.1 Albumin 3.2 Globulin 2.9 Albumin/Globulin Ratio 1.1 Triglycerides 41 Cholesterol 178 LDL Cholesterol Direct 88 HDL Cholesterol 74 H Vitamin B12 385 25-OH Vitamin D Total 26.5 L TSH 3rd Generation 12/15/16 12/15/16 07:52 07:52 WBC 4.6 RBC 3.47 L Hgb 9.9 L Hct 27.4 L MCV 79.0 L MCH 28.5 MCHC 36.1 RDW 13.6 Plt Count 106 L MPV 8.1 Gran % 54.0 Lymph % (Auto) 35.7 H [place] % (Auto) 8.1 H Eos % (Auto) 2.0 Baso % (Auto) 0.2 Gran # 2.47 Lymph # 1.6 [place] # 0.4 Eos # 0.1 Baso # 0.01 Sodium Potassium Chloride Carbon Dioxide Anion Gap BUN Creatinine Est GFR ( Amer) Est GFR (Non-Af Amer) Random Glucose Calcium Phosphorus Magnesium Total Bilirubin AST ALT Alkaline Phosphatase Total Protein Albumin Globulin Albumin/Globulin Ratio Triglycerides Cholesterol LDL Cholesterol Direct HDL Cholesterol Vitamin B12 25-OH Vitamin D Total TSH 3rd Generation 2.08 Family Contact Family involvement: Family/SO is involved Discharge/Continuing Care - Additional Comments * c/w current tx and plan * Appreciate f/u by Dr. Slater on 12/15/16~initiated [facility] * Vitals reviewed and noted below: Selected Entries 12/15/16 12/15/16 12/15/16 07:00 09:00 16:57 Temperature 98.1 F Pulse Rate 61 101 H 64 Respiratory 20 Rate Blood Pressure 137/70 134/70 135/68 * New weekend labs noted below: Laboratory Results - last 24 hr 12/14/16 12/14/16 12/15/16 07:30 07:30 07:52 WBC RBC Hgb Hct MCV MCH MCHC RDW Plt Count MPV Gran % Lymph % (Auto) [place] % (Auto) Eos % (Auto) Baso % (Auto) Gran # Lymph # [place] # Eos # Baso # Sodium 131 L Potassium 3.8 Chloride 100 Carbon Dioxide 26 Anion Gap 9 L BUN 7 Creatinine 0.8 Est GFR ( Amer) > 60 Est GFR (Non-Af Amer) > 60 Random Glucose 79 Calcium 8.7 Phosphorus 3.4 Magnesium 1.7 Total Bilirubin 0.7 AST 21 ALT 18 Alkaline Phosphatase 54 Total Protein 6.1 Albumin 3.2 Globulin 2.9 Albumin/Globulin Ratio 1.1 Triglycerides 41 Cholesterol 178 LDL Cholesterol Direct 88 HDL Cholesterol 74 H Vitamin B12 385 25-OH Vitamin D Total 26.5 L TSH 3rd Generation 12/15/16 12/15/16 07:52 07:52 WBC 4.6 RBC 3.47 L Hgb 9.9 L Hct 27.4 L MCV 79.0 L MCH 28.5 MCHC 36.1 RDW 13.6 Plt Count 106 L MPV 8.1 Gran % 54.0 Lymph % (Auto) 35.7 H [place] % (Auto) 8.1 H Eos % (Auto) 2.0 Baso % (Auto) 0.2 Gran # 2.47 Lymph # 1.6 [place] # 0.4 Eos # 0.1 Baso # 0.01 Sodium Potassium Chloride Carbon Dioxide Anion Gap BUN Creatinine Est GFR ( Amer) Est GFR (Non-Af Amer) Random Glucose Calcium Phosphorus Magnesium Total Bilirubin AST ALT Alkaline Phosphatase Total Protein Albumin Globulin Albumin/Globulin Ratio Triglycerides Cholesterol LDL Cholesterol Direct HDL Cholesterol Vitamin B12 25-OH Vitamin D Total TSH 3rd Generation 2.08 - Treatment Team Participation Patient/Family/SO Statement: * c/w current tx and plan * Appreciate f/u by Dr. Slater on 12/15/16~initiated Cardizem * Vitals reviewed and noted below: Selected Entries 12/15/16 12/15/16 12/15/16 07:00 09:00 16:57 Temperature 98.1 F Pulse Rate 61 101 H 64 Respiratory 20 Rate Blood Pressure 137/70 134/70 135/68 * New weekend labs noted below: Laboratory Results - last 24 hr 12/14/16 12/14/16 12/15/16 07:30 07:30 07:52 WBC RBC Hgb Hct MCV MCH MCHC RDW Plt Count MPV Gran % Lymph % (Auto) [place] % (Auto) Eos % (Auto) Baso % (Auto) Gran # Lymph # [place] # Eos # Baso # Sodium 131 L Potassium 3.8 Chloride 100 Carbon Dioxide 26 Anion Gap 9 L BUN 7 Creatinine 0.8 Est GFR ( Amer) > 60 Est GFR (Non-Af Amer) > 60 Random Glucose 79 Calcium 8.7 Phosphorus 3.4 Magnesium 1.7 Total Bilirubin 0.7 AST 21 ALT 18 Alkaline Phosphatase 54 Total Protein 6.1 Albumin 3.2 Globulin 2.9 Albumin/Globulin Ratio 1.1 Triglycerides 41 Cholesterol 178 LDL Cholesterol Direct 88 HDL Cholesterol 74 H Vitamin B12 385 25-OH Vitamin D Total 26.5 L TSH 3rd Generation 12/15/16 12/15/16 07:52 07:52 WBC 4.6 RBC 3.47 L Hgb 9.9 L Hct 27.4 L MCV 79.0 L MCH 28.5 MCHC 36.1 RDW 13.6 Plt Count 106 L MPV 8.1 Gran % 54.0 Lymph % (Auto) 35.7 H [place] % (Auto) 8.1 H Eos % (Auto) 2.0 Baso % (Auto) 0.2 Gran # 2.47 Lymph # 1.6 [place] # 0.4 Eos # 0.1 Baso # 0.01 Sodium Potassium Chloride Carbon Dioxide Anion Gap BUN Creatinine Est GFR ( Amer) Est GFR (Non-Af Amer) Random Glucose Calcium Phosphorus Magnesium Total Bilirubin AST ALT Alkaline Phosphatase Total Protein Albumin Globulin Albumin/Globulin Ratio Triglycerides Cholesterol LDL Cholesterol Direct HDL Cholesterol Vitamin B12 25-OH Vitamin D Total TSH 3rd Generation 2.08
--- NOTE | 2016-12-17 13:04 | PN ---
DATE: 12/17/2016 HISTORY OF PRESENT ILLNESS: The patient is a 76-year-old -Martiniquais female admitted to the [facility] for supposed hallucinations, delusions and agitation. The patient has had no evidence of any h allucinations, delusions or agitation here, although she is quite anxious. She is oriented x 3. Rec ent memory is mild to moderately impaired. Able to have a rational conversation. The patient also m et with the social worker health services. We need to contact family as they have not responded to my calls. The pa tacho states she is still somewhat anxious. She slept better last night with the sleeping medication . CURRENT MEDICATIONS: Include Ativan 0.5 mg t.i.d., Cardizem 120 mg daily, mirtazapine 50 mg at bedti me, Risperdal 0.25 mg q.4 hours p.r.n., Sonata 5 mg at bedtime p.r.n., multivitamins, vitamin D 1000 international units daily. LABORATORY DATA: The patient has no new laboratory data. On 12/15, her sodium was 131. The rest of electrolytes and profile were all within normal range. REVIEW OF SYSTEMS: Complains of lower back pain which is a chronic problem. She denies dizziness, l ightheadedness. VITAL SIGNS: Her blood pressure is 151/75, pulse 61, respirations 20 per minute and afebrile. IMPRESSION: The patient has mild dementia with mild cognitive impairment with recent behavioral dist urbance, generalized anxiety. She has vitamin D deficiency. 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 PLAN: We will increase mirtazapine to 30 mg at bedtime for depressive symptoms and for insomnia. We will also change Ativan to 1 mg b.i.d. and 1 mg at bedtime for anxiety and insomnia. We will contin ue to monitor mental status. Can keep under close observation q.15 minutes and ____ discussions with staff. Lars Darnell MD cc: [phone] TT: 12/17/2016 13:03:19 Confirmation # [id number] Dictation # [id number]
--- NOTE | 2016-12-17 16:33 | PN ---
DATE: 12/17/2016 REASON FOR CONSULTATION AND FOLLOWUP: Cardiac evaluation, history of paroxysmal atrial fibrillation, admitted to psych floor. Now, patient is in normal sinus. SUBJECTIVE: Denies any chest pain, shortness of breath, any palpitation. PHYSICAL EXAMINATION: VITAL SIGNS: Temperature afebrile, heart rate 61, blood pressure 134/66. HEENT: PERRLA. Extraocular muscles intact. NECK: Supple. No carotid bruits. No thyromegaly. CHEST: Clear to auscultation. HEART: S1, S2 regular. ABDOMEN: Soft. EXTREMITIES: Clubbing, cyanosis negative. BLOOD WORKUP: WBC 4.3, hemoglobin 9.9, hematocrit 27.9, platelet count 106. Chemistry shows sodium 131, potassium , chloride of 100, carbon dioxide 26, anion gap of 9, BUN 7, creatinine 0.8. TS H 2.08. EKG shows normal sinus, no acute ST-T changes noted. IMPRESSION: A 76-year-old female with a past medical history of paroxysmal atrial fibrillation, hype rtension, diabetes, diet controlled, gastroparesis, dementia, history of paroxysmal atrial fibrillati on, now is in sinus. Admitted to the psych floor with behavioral disorders and dementia. When the p rosa was admitted 06/21/2016, had . At that time, patient converted to normal sinus. S burt then, patient fairly stable. Echo at that time, 06/22/2016 shows preserved left ventricular eje ction fraction 63%. The patient had a cardiac catheterization in 2012 when had abnormal stress test, nonobstructive coronary artery disease, preserved left ventricular function, ejection fraction 60%. RECOMMENDATION: Continue Cardizem-CD 120 mg daily. Continue psych medication. The patient is stabl e. We will sign off and glad to follow p.r.n. Thank you, Dr. Darnell, for providing us the opportunity in taking care of the patient. Ellen Slater MD cc: [phone] TT: 12/17/2016 16:32:59 Confirmation # [id number] Dictation # [id number]
[2016-12-18 07:50] LABS: ALB/GLOB RATIO 1.2 (1.1-1.8); ALBUMIN 3.7 g/dL (3.0-4.8); ALT/SGPT 18 U/L (7-56); AST/SGOT 21 U/L (15-39); BLOOD UREA NITROGEN 11 mg/dL (7-21); CALCIUM 9.2 mg/dL (8.4-10.5); GFR AFRICAN-AMERICAN > 60; GFR NON-AFRICAN AMERICAN > 60
[2016-12-18] MEDS: diltiaZEM 120 mg/24 Hours CD Cap PO SCH (09:00)
[2016-12-18] MEDS: Multivitamin Therapeutic Tab PO SCH (09:00)
--- NOTE | 2016-12-19 08:32 | CP.PCM.PCO ---
Physician Communication Note - Physician Communication Note Physician Communication Note: Concur with new meds/long-term placement
[2016-12-19] MEDS: diltiaZEM 120 mg/24 Hours CD Cap PO SCH (09:26)
[2016-12-19] MEDS: Multivitamin Therapeutic Tab PO SCH (09:27)
--- NOTE | 2016-12-19 15:25 | RAD ---
PROCEDURE: HISTORY: FALL COMPARISON: None TECHNIQUE: Eight images FINDINGS: Generalized osteopenia without gross fracture of either femur is noted. No gross dislocation is seen on the available images of the hip and knee joints. There is advanced bilateral severe osteoarthrosis of each knee . Bilateral vascular calcifications are present IMPRESSION: No gross fracture or dislocation appreciated on the available images. The images are limited regarding optimally evaluating each knee The available studies suggest severe osteoarthrosis of each knee. Generalized osteopenia. Atherosclerotic vascular disease
--- NOTE | 2016-12-19 15:35 | RAD ---
PROCEDURE: HISTORY: FALL COMPARISON: None TECHNIQUE: AP view of the pelvis and applicable frog leg views obtained. FINDINGS: Bilateral superolateral hip joint space narrowing present. No hip fracture seen No gross pelvic fracture seen. Probable mild sclerotic changes over the right sacroiliac joint are present. Large body habitus and moderate stool retention impeding optimal evaluation here. Multiple coalescent pelvic calcifications probably relating to calcified degenerating fibroids. Concomitant bilateral tiny phleboliths also likely Inferior iliac atherosclerotic vascular calcifications. Bilateral L4-5 and L5-S1 facet hypertrophic arthrosis. IMPRESSION: No fracture appreciated. Other findings as above
[2016-12-20] MEDS: diltiaZEM 120 mg/24 Hours CD Cap PO SCH (08:37)
[2016-12-20] MEDS: Multivitamin Therapeutic Tab PO SCH (08:37)
[2016-12-21] MEDS: diltiaZEM 120 mg/24 Hours CD Cap PO SCH (09:09)
[2016-12-21] MEDS: Multivitamin Therapeutic Tab PO SCH (09:09)
--- NOTE | 2016-12-21 18:55 | PCM.PYCHPN ---
Psychiatric Progress Note - Psychiatric Progress Note Patient seen today, length of contact: 15 minutes Patient Chief Complaint: I don' Know why I am Here Problems Identified/Issues Discussed: Memory impairment, Inability to care for self,severe anxiety and depression Medical Problems: Dementia, !st degree AV Block,OA, fall risk,Depression Medication Change: Yes (Ativan 0.5 mg BID) Medical Record Reviewed: Yes (reports, notes, labs, vitals) Consults ordered or reviewed: Dr. Thurman and Dr. Yang Mental Status Examination - Cognitive Function Orientation: Person, Place, Situation, Time Memory: Impaired Attention: WNL Concentration: WNL Association: WNL Fund of Knowledge: WNL - Mood Mood: Depressed ("all right"), Anxious - Affect Affect: Flat - Speech Speech: Appropriate - Formal Thought Process Formal Thought Process: Other (mildly guarded) - Suicidal Ideation Suicidal Ideation: No - Homicidal Ideation Homicidal Ideation: No Goal/Treatment Plan - Goal/Treatment Plan Progress Toward Problem(s) and Goals/Treatment Plan: * c/w current tx and plan * Appreciate f/u by Dr. Slater on 12/15/16~initiated Cardizem * Vitals reviewed and noted below: Selected Entries 12/15/16 12/15/16 12/15/16 07:00 09:00 16:57 Temperature 98.1 F Pulse Rate 61 101 H 64 Respiratory 20 Rate Blood Pressure 137/70 134/70 135/68 * New weekend labs noted below: Laboratory Results - last 24 hr 12/14/16 12/14/16 12/15/16 07:30 07:30 07:52 WBC RBC Hgb Hct MCV MCH MCHC RDW Plt Count MPV Gran % Lymph % (Auto) White % (Auto) Eos % (Auto) Baso % (Auto) Gran # Lymph # White # Eos # Baso # Sodium 131 L Potassium 3.8 Chloride 100 Carbon Dioxide 26 Anion Gap 9 L BUN 7 Creatinine 0.8 Est GFR ( Amer) > 60 Est GFR (Non-Af Amer) > 60 Random Glucose 79 Calcium 8.7 Phosphorus 3.4 Magnesium 1.7 Total Bilirubin 0.7 AST 21 ALT 18 Alkaline Phosphatase 54 Total Protein 6.1 Albumin 3.2 Globulin 2.9 Albumin/Globulin Ratio 1.1 Triglycerides 41 Cholesterol 178 LDL Cholesterol Direct 88 HDL Cholesterol 74 H Vitamin B12 385 25-OH Vitamin D Total 26.5 L TSH 3rd Generation 12/15/16 12/15/16 07:52 07:52 WBC 4.6 RBC 3.47 L Hgb 9.9 L Hct 27.4 L MCV 79.0 L MCH 28.5 MCHC 36.1 RDW 13.6 Plt Count 106 L MPV 8.1 Gran % 54.0 Lymph % (Auto) 35.7 H White % (Auto) 8.1 H Eos % (Auto) 2.0 Baso % (Auto) 0.2 Gran # 2.47 Lymph # 1.6 White # 0.4 Eos # 0.1 Baso # 0.01 Sodium Potassium Chloride Carbon Dioxide Anion Gap BUN Creatinine Est GFR ( Amer) Est GFR (Non-Af Amer) Random Glucose Calcium Phosphorus Magnesium Total Bilirubin AST ALT Alkaline Phosphatase Total Protein Albumin Globulin Albumin/Globulin Ratio Triglycerides Cholesterol LDL Cholesterol Direct HDL Cholesterol Vitamin B12 25-OH Vitamin D Total TSH 3rd Generation 2.08
[2016-12-22] MEDS: Multivitamin Therapeutic Tab PO SCH (10:50)
[2016-12-22] MEDS: diltiaZEM 120 mg/24 Hours CD Cap PO SCH (10:50)
--- NOTE | 2016-12-22 11:09 | PCM.PYCHPN ---
Psychiatric Progress Note - Psychiatric Progress Note Patient seen today, length of contact: 30 minutes Patient Chief Complaint: 'I feel fine, I have no complaints" Problems Identified/Issues Discussed: Suicide/ homicide prevention, past psychiatric h/o, current psychiatric symptoms , medical problems, risk/benefits and alternatives of medications, medications compliance, coping strategies, substance abuse h/o, relapse prevention, importance of follow up with psychiatrist and therapist, discharge plan. Medical Problems: Dementia, !st degree AV Block, OA, fall risk Diagnostic Results: 12/15/16 07:52 12/18/16 07:15 Lab Results 12/18/16 10:14: POC Glucose (mg/dL) 204 H 12/18/16 07:15: Sodium 133, Potassium 4.1, Chloride 100, Carbon Dioxide 24, Anion Gap 13, BUN 11, Creatinine 0.8, Est GFR ( Amer) > 60, Est GFR (Non- Af Amer) > 60, Random Glucose 78, Calcium 9.2, Total Bilirubin 0.5, AST 21, ALT 18, Alkaline Phosphatase 56, Total Protein 6.8, Albumin 3.7, Globulin 3.1, Albumin/Globulin Ratio 1.2 12/15/16 07:52: TSH 3rd Generation 2.08 12/15/16 07:52: Hemoglobin A1c 4.9 12/15/16 07:52: WBC 4.6, RBC 3.47 L, Hgb 9.9 L, Hct 27.4 L, MCV 79.0 L, MCH 28.5 , MCHC 36.1, RDW 13.6, Plt Count 106 L, MPV 8.1, Gran % 54.0, Lymph % (Auto) 35.7 H, [place] % (Auto) 8.1 H, Eos % (Auto) 2.0, Baso % (Auto) 0.2, Gran # 2.47, Lymph # 1.6, [place] # 0.4, Eos # 0.1, Baso # 0.01 12/15/16 07:52: Sodium 131 L, Potassium 3.8, Chloride 100, Carbon Dioxide 26, Anion Gap 9 L, BUN 7, Creatinine 0.8, Est GFR ( Amer) > 60, Est GFR (Non- Af Amer) > 60, Random Glucose 79, Calcium 8.7, Phosphorus 3.4, Magnesium 1.7, Total Bilirubin 0.7, AST 21, ALT 18, Alkaline Phosphatase 54, Total Protein 6.1 , Albumin 3.2, Globulin 2.9, Albumin/Globulin Ratio 1.1, Triglycerides 41, Cholesterol 178, LDL Cholesterol Direct 88, HDL Cholesterol 74 H, Folate 11.4 12/14/16 07:30: Vitamin B12 385 12/14/16 07:30: Free T4 1.06, TSH 3rd Generation 2.33 12/14/16 07:30: 25-OH Vitamin D Total 26.5 L 12/13/16 16:22: Ammonia < 9 L 12/13/16 15:40: Urine Color Yellow, Urine Appearance Clear, Urine pH 6.0, Ur Specific [place] 1.020, Urine Protein Trace H, Urine Glucose (UA) Negative, Urine Ketones Negative, Urine Blood Negative, Urine Nitrate Negative, Urine Bilirubin Negative, Urine Urobilinogen 1.0 H, Ur Leukocyte Esterase Negative, Urine RBC 0 - 2, Urine WBC 0 - 2, Ur Epithelial Cells 1 - 3, Amorphous Sediment Small, Urine Bacteria Many, Urine Other [place]yeast 12/13/16 14:30: Acetaminophen < 10.0 L 12/13/16 14:30: Salicylates < 1 L 12/13/16 14:30: PT 11.5, INR 1.06, APTT 26.8 12/13/16 14:30: TSH 3rd Generation 3.73, Alcohol, Quantitative < 10 12/13/16 14:30: pO2 39, VBG pH 7.34, VBG pCO2 55.0, VBG HCO3 29.7 H, VBG O2 Sat (Calc) 72.1 H, VBG Base Excess 2.6 H 12/13/16 14:30: Sodium 132, Potassium 3.7, Chloride 98, Carbon Dioxide 27, Anion Gap 11, BUN 8, Creatinine 0.7, Est GFR ( Amer) > 60, Est GFR (Non- Af Amer) > 60, Random Glucose 91, Calcium 9.3, Phosphorus 3.4, Magnesium 1.7, Total Bilirubin 0.4, AST 25, ALT 17, Alkaline Phosphatase 60, Lactate Dehydrogenase 352, Total Creatine Kinase 38, Troponin I < 0.01, Total Protein 7.3, Albumin 4.0, Globulin 3.2, Albumin/Globulin Ratio 1.3 12/13/16 14:30: WBC 5.5, RBC 3.78, Hgb 10.9 L, Hct 30.0 L, MCV 79.4 L, MCH 28.8 , MCHC 36.3, RDW 13.8, Plt Count 128, MPV 8.8, Gran % 56.9, Lymph % (Auto) 34.1 , [place] % (Auto) 7.5 H, Eos % (Auto) 1.3 L, Baso % (Auto) 0.2, Gran # 3.12, Lymph # 1.9, [place] # 0.4, Eos # 0.1, Baso # 0.01 Vital Signs Temp Pulse Resp BP Pulse Ox 12/22/16 10:50 61 123/67 12/22/16 07:06 97.6 F 61 17 123/67 12/21/16 16:21 61 116/59 L 12/21/16 07:39 98.0 F 68 17 126/61 12/20/16 18:43 67 157/70 H 12/20/16 08:37 65 138/63 12/20/16 07:24 98.5 F 65 20 125/65 12/19/16 16:10 67 157/70 H 12/19/16 09:26 63 132/66 12/19/16 07:16 97.9 F 63 20 132/66 12/18/16 16:00 65 142/67 12/18/16 09:00 66 149/71 12/18/16 07:00 97.9 F 66 20 144/71 12/17/16 16:20 60 148/61 12/17/16 08:34 61 151/75 H 12/16/16 15:00 59 L 134/66 12/16/16 07:00 98.0 F 61 20 137/64 12/15/16 16:57 64 135/68 12/15/16 09:00 101 H 134/70 12/15/16 07:00 98.1 F 61 20 137/70 12/14/16 21:48 63 135/63 12/14/16 18:16 62 131/61 12/14/16 16:12 62 132/54 L 12/14/16 07:28 97.9 F 68 20 119/48 L 12/13/16 20:42 18 12/13/16 17:00 80 18 154/74 H 96 12/13/16 15:45 81 17 173/71 H 200 H 12/13/16 15:30 77 190/86 H 12/13/16 14:00 98.3 F 77 16 181/71 H 99 DSM 5 Symptoms Update: shortly patient is 76 years old female, reported history of mental illness, patient was admitted into the psychiatric inpatient unit for evaluation of psychotic symptoms, altered mental status, patient was bizarre, was hiding [place], indicating and urinating on the floor, patient needed to have evaluation, stabilization, observation. This insurance underwriter is covering for Dr. Darnell. ppatient was seen today at the morning time, patient presented to be alert, superficially corporative, was smiling inappropriately, patient has good personal hygiene because PCP is taking a good care of this patient. Patient is on one-to-one for risk of falls. Patient said that she does feel fine, denied being depressed, denied thoughts of harming herself or others, denied visual or distorted tactile hallucinations. Patient reported that she has good appetite and sleep no behavioral disturbances , no episodes of urination or defecation on the floor, pt was able to express her needs. pt tolerates meds well, no side effects observed or reported, AIMS 0, no EPS. impression: Diagnostic Results: Depression, mild-moderate Generalized anxiety Mild neurocognitive impairment Hx of Psychotic Sx Hx of Mild Dementia Medication Change: No (Ativan 0.5 mg BID started yesterday) Medical Record Reviewed: Yes (reports, notes, labs, vitals) Consults ordered or reviewed: cardiology consult appreciated PMD consult appreciated please see notes for more detailed information Mental Status Examination - Cognitive Function Orientation: Person, Place, Situation, Time Memory: Impaired Attention: WNL Concentration: WNL Association: WNL Fund of Knowledge: WNL - Mood Mood: Depressed ("all right"), Anxious - Affect Affect: Flat - Speech Speech: Appropriate - Formal Thought Process Formal Thought Process: Other (mildly guarded) - Suicidal Ideation Suicidal Ideation: No - Homicidal Ideation Homicidal Ideation: No Goal/Treatment Plan - Goal/Treatment Plan Need for Continued Stay: Remain at risks for inpatient hospitalization, Severe depression anxiety, Discharge may exacerbated symptoms, Severe functional impairment Progress Toward Problem(s) and Goals/Treatment Plan: Milieu, structure, supportive therapy We'll continue vitamin C 1000 units daily Cardizem 120 mg daily Ativan 0.5 mg twice a day for anxiety will continue Remeron 15 mg at the nighttime for depression and insomnia Multivitamins by mouth daily Risperdal 0.25 mg every 4 hours as needed for psychosis and agitation Risperdal 0.5 mg of the nighttime scheduled Sonata 5 mg at the nighttime as needed for insomnia 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 Darnell Estimated Date of D/C: 12/28/16 (will monitor closely)
[2016-12-23] MEDS ORDERED: Magnesium Hydroxide Susp 30 ml UD PO PRN (07:59)
[2016-12-23] MEDS ORDERED: Alum-Mag Hydrox-Simethicone Susp (30 mL) PO PRN (07:59)
[2016-12-23] MEDS: diltiaZEM 120 mg/24 Hours CD Cap PO SCH (08:20)
[2016-12-23] MEDS: Multivitamin Therapeutic Tab PO SCH (08:21)
--- NOTE | 2016-12-23 10:31 | PCM.PYCHPN ---
Psychiatric Progress Note - Psychiatric Progress Note Patient seen today, length of contact: 30 minutes Patient Chief Complaint: 'I feel fine, I have no complaints" Problems Identified/Issues Discussed: Suicide/ homicide prevention, past psychiatric h/o, current psychiatric symptoms , medical problems, risk/benefits and alternatives of medications, medications compliance, coping strategies, substance abuse h/o, relapse prevention, importance of follow up with psychiatrist and therapist, discharge plan. Medical Problems: Dementia, !st degree AV Block, OA, fall risk Diagnostic Results: 12/15/16 07:52 12/18/16 07:15 Lab Results 12/18/16 10:14: POC Glucose (mg/dL) 204 H 12/18/16 07:15: Sodium 133, Potassium 4.1, Chloride 100, Carbon Dioxide 24, Anion Gap 13, BUN 11, Creatinine 0.8, Est GFR ( Amer) > 60, Est GFR (Non- Af Amer) > 60, Random Glucose 78, Calcium 9.2, Total Bilirubin 0.5, AST 21, ALT 18, Alkaline Phosphatase 56, Total Protein 6.8, Albumin 3.7, Globulin 3.1, Albumin/Globulin Ratio 1.2 12/15/16 07:52: TSH 3rd Generation 2.08 12/15/16 07:52: Hemoglobin A1c 4.9 12/15/16 07:52: WBC 4.6, RBC 3.47 L, Hgb 9.9 L, Hct 27.4 L, MCV 79.0 L, MCH 28.5 , MCHC 36.1, RDW 13.6, Plt Count 106 L, MPV 8.1, Gran % 54.0, Lymph % (Auto) 35.7 H, [place] % (Auto) 8.1 H, Eos % (Auto) 2.0, Baso % (Auto) 0.2, Gran # 2.47, Lymph # 1.6, [place] # 0.4, Eos # 0.1, Baso # 0.01 12/15/16 07:52: Sodium 131 L, Potassium 3.8, Chloride 100, Carbon Dioxide 26, Anion Gap 9 L, BUN 7, Creatinine 0.8, Est GFR ( Amer) > 60, Est GFR (Non- Af Amer) > 60, Random Glucose 79, Calcium 8.7, Phosphorus 3.4, Magnesium 1.7, Total Bilirubin 0.7, AST 21, ALT 18, Alkaline Phosphatase 54, Total Protein 6.1 , Albumin 3.2, Globulin 2.9, Albumin/Globulin Ratio 1.1, Triglycerides 41, Cholesterol 178, LDL Cholesterol Direct 88, HDL Cholesterol 74 H, Folate 11.4 12/14/16 07:30: Vitamin B12 385 12/14/16 07:30: Free T4 1.06, TSH 3rd Generation 2.33 12/14/16 07:30: 25-OH Vitamin D Total 26.5 L 12/13/16 16:22: Ammonia < 9 L 12/13/16 15:40: Urine Color Yellow, Urine Appearance Clear, Urine pH 6.0, Ur Specific [place] 1.020, Urine Protein Trace H, Urine Glucose (UA) Negative, Urine Ketones Negative, Urine Blood Negative, Urine Nitrate Negative, Urine Bilirubin Negative, Urine Urobilinogen 1.0 H, Ur Leukocyte Esterase Negative, Urine RBC 0 - 2, Urine WBC 0 - 2, Ur Epithelial Cells 1 - 3, Amorphous Sediment Small, Urine Bacteria Many, Urine Other [place]yeast 12/13/16 14:30: Acetaminophen < 10.0 L 12/13/16 14:30: Salicylates < 1 L 12/13/16 14:30: PT 11.5, INR 1.06, APTT 26.8 12/13/16 14:30: TSH 3rd Generation 3.73, Alcohol, Quantitative < 10 12/13/16 14:30: pO2 39, VBG pH 7.34, VBG pCO2 55.0, VBG HCO3 29.7 H, VBG O2 Sat (Calc) 72.1 H, VBG Base Excess 2.6 H 12/13/16 14:30: Sodium 132, Potassium 3.7, Chloride 98, Carbon Dioxide 27, Anion Gap 11, BUN 8, Creatinine 0.7, Est GFR ( Amer) > 60, Est GFR (Non- Af Amer) > 60, Random Glucose 91, Calcium 9.3, Phosphorus 3.4, Magnesium 1.7, Total Bilirubin 0.4, AST 25, ALT 17, Alkaline Phosphatase 60, Lactate Dehydrogenase 352, Total Creatine Kinase 38, Troponin I < 0.01, Total Protein 7.3, Albumin 4.0, Globulin 3.2, Albumin/Globulin Ratio 1.3 12/13/16 14:30: WBC 5.5, RBC 3.78, Hgb 10.9 L, Hct 30.0 L, MCV 79.4 L, MCH 28.8 , MCHC 36.3, RDW 13.8, Plt Count 128, MPV 8.8, Gran % 56.9, Lymph % (Auto) 34.1 , [place] % (Auto) 7.5 H, Eos % (Auto) 1.3 L, Baso % (Auto) 0.2, Gran # 3.12, Lymph # 1.9, [place] # 0.4, Eos # 0.1, Baso # 0.01 Vital Signs Temp Pulse Resp BP Pulse Ox 12/22/16 10:50 61 123/67 12/22/16 07:06 97.6 F 61 17 123/67 12/21/16 16:21 61 116/59 L 12/21/16 07:39 98.0 F 68 17 126/61 12/20/16 18:43 67 157/70 H 12/20/16 08:37 65 138/63 12/20/16 07:24 98.5 F 65 20 125/65 12/19/16 16:10 67 157/70 H 12/19/16 09:26 63 132/66 12/19/16 07:16 97.9 F 63 20 132/66 12/18/16 16:00 65 142/67 12/18/16 09:00 66 149/71 12/18/16 07:00 97.9 F 66 20 144/71 12/17/16 16:20 60 148/61 12/17/16 08:34 61 151/75 H 12/16/16 15:00 59 L 134/66 12/16/16 07:00 98.0 F 61 20 137/64 12/15/16 16:57 64 135/68 12/15/16 09:00 101 H 134/70 12/15/16 07:00 98.1 F 61 20 137/70 12/14/16 21:48 63 135/63 12/14/16 18:16 62 131/61 12/14/16 16:12 62 132/54 L 12/14/16 07:28 97.9 F 68 20 119/48 L 12/13/16 20:42 18 12/13/16 17:00 80 18 154/74 H 96 12/13/16 15:45 81 17 173/71 H 200 H 12/13/16 15:30 77 190/86 H 12/13/16 14:00 98.3 F 77 16 181/71 H 99 Temp Pulse Resp BP Pulse Ox 98.1 F 74 20 128/70 96 12/23/16 07:45 12/23/16 08:20 12/23/16 07:45 12/23/16 08:20 12/13/16 17:00 DSM 5 Symptoms Update: shortly patient is 76 years old female, reported history of mental illness, patient was admitted into the psychiatric inpatient unit for evaluation of psychotic symptoms, altered mental status, patient was bizarre, was hiding clothes, indicating and urinating on the floor, patient needed to have evaluation, stabilization, observation. This chart writer is covering for Dr. Darnell. patient was seen today at the morning time at the dinning area, patient presented to be alert, oriented in self, place and date, superficially corporative, pt said that she was not able to sleep last night because of "a lot of things on my mind", pt ws offered to increased Risperdal. patient has good personal hygiene because PCP is taking a good care of this patient. Patient is on one-to-one for risk of falls. Patient said that she does feel fine, denied being depressed, denied thoughts of harming herself or others, denied visual or distorted tactile hallucinations. Patient reported that she has good appetite and sleep no behavioral disturbances , no episodes of urination or defecation on the floor, pt was able to express her needs. pt tolerates meds well, no side effects observed or reported, AIMS 0, no EPS. impression: Diagnostic Results: Depression, mild-moderate Generalized anxiety Mild neurocognitive impairment Hx of Psychotic Sx Hx of Mild Dementia Medication Change: Yes (ripserdal hs increased) Medical Record Reviewed: Yes (reports, notes, labs, vitals) Consults ordered or reviewed: cardiology consult appreciated PMD consult appreciated please see notes for more detailed information Mental Status Examination - Cognitive Function Orientation: Person, Place, Situation, Time Memory: Impaired Attention: WNL Concentration: WNL Association: WNL Fund of Knowledge: WNL - Mood Mood: Depressed ("all right"), Anxious - Affect Affect: Flat - Speech Speech: Appropriate - Formal Thought Process Formal Thought Process: Other (mildly guarded) - Suicidal Ideation Suicidal Ideation: No - Homicidal Ideation Homicidal Ideation: No Goal/Treatment Plan - Goal/Treatment Plan Need for Continued Stay: Remain at risks for inpatient hospitalization, Severe depression anxiety, Discharge may exacerbated symptoms, Severe functional impairment Progress Toward Problem(s) and Goals/Treatment Plan: Milieu, structure, supportive therapy We'll continue vitamin C 1000 units daily Cardizem 120 mg daily Ativan 0.5 mg twice a day for anxiety will continue Remeron 15 mg at the nighttime for depression and insomnia Multivitamins by mouth daily Risperdal 0.25 mg every 4 hours as needed for psychosis and agitation Risperdal 1mg mg of the nighttime scheduled Sonata 5 mg at the nighttime as needed for insomnia 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 Darnell Estimated Date of D/C: 12/28/16 (will monitor closely)
[2016-12-24 07:30] VITALS: RESP 20
[2016-12-24] MEDS: diltiaZEM 120 mg/24 Hours CD Cap PO SCH (09:12)
[2016-12-24] MEDS: Multivitamin Therapeutic Tab PO SCH (09:12)
--- NOTE | 2016-12-24 14:39 | PCM.PYCHPN ---
Psychiatric Progress Note - Psychiatric Progress Note Patient seen today, length of contact: 15 minutes Patient Chief Complaint: I don' Know why I am Here Problems Identified/Issues Discussed: Memory impairment, Inability to care for self,severe anxiety and depression Medical Problems: Dementia, !st degree AV Block,OA, fall risk,Depression Medication Change: Yes (ripserdal hs increased) Medical Record Reviewed: Yes (reports, notes, labs, vitals) Mental Status Examination - Cognitive Function Orientation: Person, Place, Situation, Time Memory: Impaired Attention: WNL Concentration: WNL Association: WNL Fund of Knowledge: WNL - Mood Mood: Depressed ("all right"), Anxious - Affect Affect: Flat - Speech Speech: Appropriate - Formal Thought Process Formal Thought Process: Other (mildly guarded) - Suicidal Ideation Suicidal Ideation: No - Homicidal Ideation Homicidal Ideation: No Goal/Treatment Plan - Goal/Treatment Plan Need for Continued Stay: Remain at risks for inpatient hospitalization ( Increase Risperidal to 1.5 mg HS), Severe depression anxiety, Discharge may exacerbated symptoms, Severe functional impairment Progress Toward Problem(s) and Goals/Treatment Plan: * c/w current tx and plan * Appreciate f/u by Dr. Slater on 12/15/16~initiated Cardizem * Vitals reviewed and noted below: Selected Entries 12/15/16 12/15/16 12/15/16 07:00 09:00 16:57 Temperature 98.1 F Pulse Rate 61 101 H 64 Respiratory 20 Rate Blood Pressure 137/70 134/70 135/68 * New weekend labs noted below: Laboratory Results - last 24 hr 12/14/16 12/14/16 12/15/16 07:30 07:30 07:52 WBC RBC Hgb Hct MCV MCH MCHC RDW Plt Count MPV Gran % Lymph % (Auto) [place] % (Auto) Eos % (Auto) Baso % (Auto) Gran # Lymph # [place] # Eos # Baso # Sodium 131 L Potassium 3.8 Chloride 100 Carbon Dioxide 26 Anion Gap 9 L BUN 7 Creatinine 0.8 Est GFR ( Amer) > 60 Est GFR (Non-Af Amer) > 60 Random Glucose 79 Calcium 8.7 Phosphorus 3.4 Magnesium 1.7 Total Bilirubin 0.7 AST 21 ALT 18 Alkaline Phosphatase 54 Total Protein 6.1 Albumin 3.2 Globulin 2.9 Albumin/Globulin Ratio 1.1 Triglycerides 41 Cholesterol 178 LDL Cholesterol Direct 88 HDL Cholesterol 74 H Vitamin B12 385 25-OH Vitamin D Total 26.5 L TSH 3rd Generation 12/15/16 12/15/16 07:52 07:52 WBC 4.6 RBC 3.47 L Hgb 9.9 L Hct 27.4 L MCV 79.0 L MCH 28.5 MCHC 36.1 RDW 13.6 Plt Count 106 L MPV 8.1 Gran % 54.0 Lymph % (Auto) 35.7 H [place] % (Auto) 8.1 H Eos % (Auto) 2.0 Baso % (Auto) 0.2 Gran # 2.47 Lymph # 1.6 [place] # 0.4 Eos # 0.1 Baso # 0.01 Sodium Potassium Chloride Carbon Dioxide Anion Gap BUN Creatinine Est GFR ( Amer) Est GFR (Non-Af Amer) Random Glucose Calcium Phosphorus Magnesium Total Bilirubin AST ALT Alkaline Phosphatase Total Protein Albumin Globulin Albumin/Globulin Ratio Triglycerides Cholesterol LDL Cholesterol Direct HDL Cholesterol Vitamin B12 25-OH Vitamin D Total TSH 3rd Generation 2.08 Estimated Date of D/C: 12/28/16 (will monitor closely) - Smoking Cessation Smoking Cessation Initiated: No Reason for not providing: Non-smoker
[2016-12-25] MEDS: diltiaZEM 120 mg/24 Hours CD Cap PO SCH (09:46)
[2016-12-25] MEDS: Multivitamin Therapeutic Tab PO SCH (09:47)
--- NOTE | 2016-12-25 10:54 | PCM.PYCHPN ---
Psychiatric Progress Note - Psychiatric Progress Note Patient seen today, length of contact: 20min Patient Chief Complaint: 'I am doing just fine, what do you mean I was confused last night, I slept well last night". Problems Identified/Issues Discussed: Suicide/ homicide prevention, past psychiatric h/o, current psychiatric symptoms , medical problems, risk/benefits and alternatives of medications, medications compliance, coping strategies, substance abuse h/o, relapse prevention, importance of follow up with psychiatrist and therapist, discharge plan. Medical Problems: Dementia, !st degree AV Block, OA, fall risk Diagnostic Results: 12/15/16 07:52 12/18/16 07:15 Lab Results 12/18/16 10:14: POC Glucose (mg/dL) 204 H 12/18/16 07:15: Sodium 133, Potassium 4.1, Chloride 100, Carbon Dioxide 24, Anion Gap 13, BUN 11, Creatinine 0.8, Est GFR ( Amer) > 60, Est GFR (Non- Af Amer) > 60, Random Glucose 78, Calcium 9.2, Total Bilirubin 0.5, AST 21, ALT 18, Alkaline Phosphatase 56, Total Protein 6.8, Albumin 3.7, Globulin 3.1, Albumin/Globulin Ratio 1.2 12/15/16 07:52: TSH 3rd Generation 2.08 12/15/16 07:52: Hemoglobin A1c 4.9 12/15/16 07:52: WBC 4.6, RBC 3.47 L, Hgb 9.9 L, Hct 27.4 L, MCV 79.0 L, MCH 28.5 , MCHC 36.1, RDW 13.6, Plt Count 106 L, MPV 8.1, Gran % 54.0, Lymph % (Auto) 35.7 H, [place] % (Auto) 8.1 H, Eos % (Auto) 2.0, Baso % (Auto) 0.2, Gran # 2.47, Lymph # 1.6, [place] # 0.4, Eos # 0.1, Baso # 0.01 12/15/16 07:52: Sodium 131 L, Potassium 3.8, Chloride 100, Carbon Dioxide 26, Anion Gap 9 L, BUN 7, Creatinine 0.8, Est GFR ( Amer) > 60, Est GFR (Non- Af Amer) > 60, Random Glucose 79, Calcium 8.7, Phosphorus 3.4, Magnesium 1.7, Total Bilirubin 0.7, AST 21, ALT 18, Alkaline Phosphatase 54, Total Protein 6.1 , Albumin 3.2, Globulin 2.9, Albumin/Globulin Ratio 1.1, Triglycerides 41, Cholesterol 178, LDL Cholesterol Direct 88, HDL Cholesterol 74 H, Folate 11.4 12/14/16 07:30: Vitamin B12 385 12/14/16 07:30: Free T4 1.06, TSH 3rd Generation 2.33 12/14/16 07:30: 25-OH Vitamin D Total 26.5 L 12/13/16 16:22: Ammonia < 9 L 12/13/16 15:40: Urine Color Yellow, Urine Appearance Clear, Urine pH 6.0, Ur Specific [place] 1.020, Urine Protein Trace H, Urine Glucose (UA) Negative, Urine Ketones Negative, Urine Blood Negative, Urine Nitrate Negative, Urine Bilirubin Negative, Urine Urobilinogen 1.0 H, Ur Leukocyte Esterase Negative, Urine RBC 0 - 2, Urine WBC 0 - 2, Ur Epithelial Cells 1 - 3, Amorphous Sediment Small, Urine Bacteria Many, Urine Other [place] 12/13/16 14:30: Acetaminophen < 10.0 L 12/13/16 14:30: Salicylates < 1 L 12/13/16 14:30: PT 11.5, INR 1.06, APTT 26.8 12/13/16 14:30: TSH 3rd Generation 3.73, Alcohol, Quantitative < 10 12/13/16 14:30: pO2 39, VBG pH 7.34, VBG pCO2 55.0, VBG HCO3 29.7 H, VBG O2 Sat (Calc) 72.1 H, VBG Base Excess 2.6 H 12/13/16 14:30: Sodium 132, Potassium 3.7, Chloride 98, Carbon Dioxide 27, Anion Gap 11, BUN 8, Creatinine 0.7, Est GFR ( Amer) > 60, Est GFR (Non- Af Amer) > 60, Random Glucose 91, Calcium 9.3, Phosphorus 3.4, Magnesium 1.7, Total Bilirubin 0.4, AST 25, ALT 17, Alkaline Phosphatase 60, Lactate Dehydrogenase 352, Total Creatine Kinase 38, Troponin I < 0.01, Total Protein 7.3, Albumin 4.0, Globulin 3.2, Albumin/Globulin Ratio 1.3 12/13/16 14:30: WBC 5.5, RBC 3.78, Hgb 10.9 L, Hct 30.0 L, MCV 79.4 L, MCH 28.8 , MCHC 36.3, RDW 13.8, Plt Count 128, MPV 8.8, Gran % 56.9, Lymph % (Auto) 34.1 , [place] % (Auto) 7.5 H, Eos % (Auto) 1.3 L, Baso % (Auto) 0.2, Gran # 3.12, Lymph # 1.9, [place] # 0.4, Eos # 0.1, Baso # 0.01 Vital Signs Temp Pulse Resp BP Pulse Ox 12/22/16 10:50 61 123/67 12/22/16 07:06 97.6 F 61 17 123/67 12/21/16 16:21 61 116/59 L 12/21/16 07:39 98.0 F 68 17 126/61 12/20/16 18:43 67 157/70 H 12/20/16 08:37 65 138/63 12/20/16 07:24 98.5 F 65 20 125/65 12/19/16 16:10 67 157/70 H 12/19/16 09:26 63 132/66 12/19/16 07:16 97.9 F 63 20 132/66 12/18/16 16:00 65 142/67 12/18/16 09:00 66 149/71 12/18/16 07:00 97.9 F 66 20 144/71 12/17/16 16:20 60 148/61 12/17/16 08:34 61 151/75 H 12/16/16 15:00 59 L 134/66 12/16/16 07:00 98.0 F 61 20 137/64 12/15/16 16:57 64 135/68 12/15/16 09:00 101 H 134/70 12/15/16 07:00 98.1 F 61 20 137/70 12/14/16 21:48 63 135/63 12/14/16 18:16 62 131/61 12/14/16 16:12 62 132/54 L 12/14/16 07:28 97.9 F 68 20 119/48 L 12/13/16 20:42 18 12/13/16 17:00 80 18 154/74 H 96 12/13/16 15:45 81 17 173/71 H 200 H 12/13/16 15:30 77 190/86 H 12/13/16 14:00 98.3 F 77 16 181/71 H 99 Temp Pulse Resp BP Pulse Ox 98.1 F 74 20 128/70 96 12/23/16 07:45 12/23/16 08:20 12/23/16 07:45 12/23/16 08:20 12/13/16 17:00 Temp Pulse Resp BP Pulse Ox 97.9 F 67 20 155/68 H 96 12/24/16 07:28 12/25/16 09:46 12/24/16 07:28 12/25/16 09:46 12/13/16 17:00 DSM 5 Symptoms Update: shortly patient is 76 years old AA female, reported history of mental illness, patient was admitted into the psychiatric inpatient unit for evaluation of psychotic symptoms, altered mental status, patient was bizarre, was hiding clothes, dedicating and urinating on the floor, patient needed to have evaluation, stabilization, observation. This documentation writer is covering for Dr. Darnell. as per nursing staff report pt was very confused, agitated, paranoid last night , had impression that staff is poisoning her and giving her wrong medications, needed to have IM of [employer]. implemented zyprexa zydis at . pt does not remember being confused, said "what do you mean?, I slept well, I was not confused..." patient was seen today at the morning time at the dinning area, patient presented to be alert, oriented in self, place and date, superficially corporative,Patient is on one-to-one for risk of falls. pt tolerates meds well, no side effects observed or reported, AIMS 0, no EPS. impression: Diagnostic Results: Depression, mild-moderate Generalized anxiety Mild neurocognitive impairment Hx of Psychotic Sx Hx of Mild Dementia Medication Change: Yes (zyprexa was initiated by ) Medical Record Reviewed: Yes (reports, notes, labs, vitals) Consults ordered or reviewed: cardiology consult appreciated PMD consult appreciated please see notes for more detailed information Mental Status Examination - Cognitive Function Orientation: Person, Place, Situation, Time Memory: Impaired Attention: Poor Concentration: Poor Association: Loose Fund of Knowledge: WNL - Mood Mood: Depressed ("all right"), Anxious - Affect Affect: Flat - Speech Speech: Appropriate - Formal Thought Process Formal Thought Process: Other (mildly guarded) - Suicidal Ideation Suicidal Ideation: No - Homicidal Ideation Homicidal Ideation: No Goal/Treatment Plan - Goal/Treatment Plan Need for Continued Stay: Remain at risks for inpatient hospitalization ( Increase Risperidal to 1.5 mg HS), Severe depression anxiety, Discharge may exacerbated symptoms, Severe functional impairment Progress Toward Problem(s) and Goals/Treatment Plan: Milieu, structure, supportive therapy We'll continue vitamin C 1000 units daily Cardizem 120 mg daily Ativan 0.5 mg twice a day for anxiety will continue Remeron 15 mg at the nighttime for depression and insomnia Multivitamins by mouth daily zyprexa zydis 10mg hs was started by . Sonata 5 mg at the nighttime as needed for insomnia hand worker evaluation we will discuss case with Dr. Darnell Estimated Date of D/C: 12/28/16 (will monitor closely)
[2016-12-25] MEDS: OLANZapine 10 mg Disintegrating Tab PO SCH (21:18)
[2016-12-26] MEDS: diltiaZEM 120 mg/24 Hours CD Cap PO SCH (08:28)
[2016-12-26] MEDS: Multivitamin Therapeutic Tab PO SCH (08:29)
--- NOTE | 2016-12-26 12:33 | PCM.PYCHPN ---
Psychiatric Progress Note - Psychiatric Progress Note Patient seen today, length of contact: 10min Patient Chief Complaint: I don' Know why I am Here Problems Identified/Issues Discussed: Memory impairment, Inability to care for self,severe anxiety and depression Medical Problems: Dementia, !st degree AV Block,OA, fall risk,Depression Medication Change: Yes (zyprexa was initiated by ) Medical Record Reviewed: Yes (reports, notes, labs, vitals) Consults ordered or reviewed: All consult notes reviewed. Mental Status Examination - Cognitive Function Orientation: Person, Place, Situation, Time Memory: Impaired Attention: WNL Concentration: Poor Association: WNL Fund of Knowledge: WNL Decription of patient's judgement and insights: Fair...belittes Neurological problems - Mood Mood: Depressed ("all right"), Anxious - Affect Affect: Flat Additional comments: Fluent - Speech Speech: Appropriate - Formal Thought Process Formal Thought Process: Other (mildly guarded) - Suicidal Ideation Suicidal Ideation: No - Homicidal Ideation Homicidal Ideation: No Goal/Treatment Plan - Goal/Treatment Plan Need for Continued Stay: Remain at risks for inpatient hospitalization, Severe depression anxiety, Discharge may exacerbated symptoms, Severe functional impairment, Other (Nonsmoker) Progress Toward Problem(s) and Goals/Treatment Plan: * c/w current tx and plan * Appreciate f/u by Dr. Slater on 12/15/16~initiated [facility] * Vitals reviewed and noted below: Selected Entries 12/15/16 12/15/16 12/15/16 07:00 09:00 16:57 Temperature 98.1 F Pulse Rate 61 101 H 64 Respiratory 20 Rate Blood Pressure 137/70 134/70 135/68 * New weekend labs noted below: Laboratory Results - last 24 hr 12/14/16 12/14/16 12/15/16 07:30 07:30 07:52 WBC RBC Hgb Hct MCV MCH MCHC RDW Plt Count MPV Gran % Lymph % (Auto) [place] % (Auto) Eos % (Auto) Baso % (Auto) Gran # Lymph # [place] # Eos # Baso # Sodium 131 L Potassium 3.8 Chloride 100 Carbon Dioxide 26 Anion Gap 9 L BUN 7 Creatinine 0.8 Est GFR ( Amer) > 60 Est GFR (Non-Af Amer) > 60 Random Glucose 79 Calcium 8.7 Phosphorus 3.4 Magnesium 1.7 Total Bilirubin 0.7 AST 21 ALT 18 Alkaline Phosphatase 54 Total Protein 6.1 Albumin 3.2 Globulin 2.9 Albumin/Globulin Ratio 1.1 Triglycerides 41 Cholesterol 178 LDL Cholesterol Direct 88 HDL Cholesterol 74 H Vitamin B12 385 25-OH Vitamin D Total 26.5 L TSH 3rd Generation 12/15/16 12/15/16 07:52 07:52 WBC 4.6 RBC 3.47 L Hgb 9.9 L Hct 27.4 L MCV 79.0 L MCH 28.5 MCHC 36.1 RDW 13.6 Plt Count 106 L MPV 8.1 Gran % 54.0 Lymph % (Auto) 35.7 H [place] % (Auto) 8.1 H Eos % (Auto) 2.0 Baso % (Auto) 0.2 Gran # 2.47 Lymph # 1.6 [place] # 0.4 Eos # 0.1 Baso # 0.01 Sodium Potassium Chloride Carbon Dioxide Anion Gap BUN Creatinine Est GFR ( Amer) Est GFR (Non-Af Amer) Random Glucose Calcium Phosphorus Magnesium Total Bilirubin AST ALT Alkaline Phosphatase Total Protein Albumin Globulin Albumin/Globulin Ratio Triglycerides Cholesterol LDL Cholesterol Direct HDL Cholesterol Vitamin B12 25-OH Vitamin D Total TSH 3rd Generation 2.08 Estimated Date of D/C: 12/28/16 (will monitor closely) - Smoking Cessation Smoking Cessation Initiated: No Assessment & Plan (1) Dementia Status: Acute (2) Depression Status: Acute (3) Arthritis Status: Active (4) Dementia Status: Acute - Assessment and Plan (Free Text) Assessment: 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
[2016-12-26] MEDS: OLANZapine 10 mg Disintegrating Tab PO SCH (21:17)
[2016-12-27 07:41] VITALS: PULSE 64; TEMP 98.2
[2016-12-27] MEDS: diltiaZEM 120 mg/24 Hours CD Cap PO SCH (09:10)
[2016-12-27] MEDS: Multivitamin Therapeutic Tab PO SCH (09:12)
[2016-12-27 09:15] VITALS: BP 129/56
[2016-12-27] MEDS: Ferrous Sulfate 300 mg/5 mL Liq UD PO SCH ×2 (14:27→15:42)
[2016-12-27 14:42] LABS: IRON 47 ug/dL (45-180)
[2016-12-27 14:52] LABS: % IRON SATURATION 17 % (20-55); TOTAL IRON BINDING CAPACITY 279 ug/dL (265-497)
--- NOTE | 2016-12-28 09:51 | PCM.PYCHDC ---
Mental Status Examination - Mental Status Examination Orientation: Person, Place, Situation, Time Memory: Impaired Mood: Depressed Affect: Blunted Speech: Appropriate Attention: WNL Concentration: WNL Language: Word Retrieval Association: WNL Fund of Knowledge: WNL Formal Thought Process: No Impairment Description of patient's judgement and insight: Fair...belittes Neurological problems Psychotic Thoughts and Behaviors: No psychosis Suicidal Ideation: No Current Homicidal Ideation?: No Plan: To Stay with daughter. Will have 24 hour care.Followup in my office in 7-10 DAYS. no etoh. No going out alone. Discharge Summary - Discharge Note Reason for Hospitalization: Indifferent Laboratory Data: Abnormal Lab Results 12/27/16 12/27/16 14:15 14:15 Iron 47 TIBC 279 % Saturation 17 L Ferritin 41.2 Consultations:: List each consultation separately and include: 1. Reason for request. 2. Findings. 3. Follow-up Consultations: All consult notes reviewed. Summary of Hospital Course include:: 1. Description of specific treatment plan utilized for patients during their course of treatmen. 2. Summarize the time- course for resolution of acute symptoms and/or regressed behaviors. 3. Describe issues identified and worked on during hospitalization. 4. Describe medication utilized. 5. Describe medical problems identified and treated. 6. Reassessment of suicide risk Summary of Hospital Course: According to Er Record patient wa seeing things and hearing things that were not there. Patient denies this. - Diagnosis (1) Dementia Status: Chronic Priority: Medium (2) Depression Status: Chronic (3) Arthritis Status: Active (4) Dementia Status: Acute Priority: High (5) Dementia arising in the senium and presenium Status: Acute - Final Diagnosis (DSM 5) Condition upon Discharge: FAIR Disposition: HOME/ ROUTINE Follow-up Treatment Plan: * c/w current tx and plan * Appreciate f/u by Dr. Slater on 12/15/16~[facility] * Vitals reviewed and noted below: Selected Entries 12/15/16 12/15/16 12/15/16 07:00 09:00 16:57 Temperature 98.1 F Pulse Rate 61 101 H 64 Respiratory 20 Rate Blood Pressure 137/70 134/70 135/68 * New weekend labs noted below: Laboratory Results - last 24 hr 12/14/16 12/14/16 12/15/16 07:30 07:30 07:52 WBC RBC Hgb Hct MCV MCH MCHC RDW Plt Count MPV Gran % Lymph % (Auto) [place] % (Auto) Eos % (Auto) Baso % (Auto) Gran # Lymph # [place] # Eos # Baso # Sodium 131 L Potassium 3.8 Chloride 100 Carbon Dioxide 26 Anion Gap 9 L BUN 7 Creatinine 0.8 Est GFR ( Amer) > 60 Est GFR (Non-Af Amer) > 60 Random Glucose 79 Calcium 8.7 Phosphorus 3.4 Magnesium 1.7 Total Bilirubin 0.7 AST 21 ALT 18 Alkaline Phosphatase 54 Total Protein 6.1 Albumin 3.2 Globulin 2.9 Albumin/Globulin Ratio 1.1 Triglycerides 41 Cholesterol 178 LDL Cholesterol Direct 88 HDL Cholesterol 74 H Vitamin B12 385 25-OH Vitamin D Total 26.5 L TSH 3rd Generation 12/15/16 12/15/16 07:52 07:52 WBC 4.6 RBC 3.47 L Hgb 9.9 L Hct 27.4 L MCV 79.0 L MCH 28.5 MCHC 36.1 RDW 13.6 Plt Count 106 L MPV 8.1 Gran % 54.0 Lymph % (Auto) 35.7 H [place] % (Auto) 8.1 H Eos % (Auto) 2.0 Baso % (Auto) 0.2 Gran # 2.47 Lymph # 1.6 [place] # 0.4 Eos # 0.1 Baso # 0.01 Sodium Potassium Chloride Carbon Dioxide Anion Gap BUN Creatinine Est GFR ( Amer) Est GFR (Non-Af Amer) Random Glucose Calcium Phosphorus Magnesium Total Bilirubin AST ALT Alkaline Phosphatase Total Protein Albumin Globulin Albumin/Globulin Ratio Triglycerides Cholesterol LDL Cholesterol Direct HDL Cholesterol Vitamin B12 25-OH Vitamin D Total TSH 3rd Generation 2.08 - Smoking Cessation Smoking Cessation Medication prescribed: No Reason for not providing: Non Smoker - Antipsychotic Medications Pt discharged on 2 or more routine antipsychotic medications: No
== END 2016-12-27 16:45 | disposition home or self-care (01) | DRG 57 ==
LOC: ED 13:45 → ERH 17:52 → PSYC 19:21
PROVIDERS: ADMIT Psychiatry & Neurology Psychiatry; ATTEND Psychiatry & Neurology Psychiatry
PROC: GZ3ZZZZ Medication Management (ICD-10-PCS; principal; 2016-12-13)
DX: G30.9 Alzheimer's disease, unspecified (principal); F02.81 Dementia in other diseases classified elsewhere, unspecified severity, with behavioral disturbance; F22 Delusional disorders; F32.9 Major depressive disorder, single episode, unspecified; F41.1 Generalized anxiety disorder; I48.0 Paroxysmal atrial fibrillation; K74.60 Unspecified cirrhosis of liver; E11.43 Type 2 diabetes mellitus with diabetic autonomic (poly)neuropathy; K31.84 Gastroparesis; I10 Essential (primary) hypertension; G47.00 Insomnia, unspecified; I25.10 Atherosclerotic heart disease of native coronary artery without angina pectoris; E78.5 Hyperlipidemia, unspecified; I44.0 Atrioventricular block, first degree; E55.9 Vitamin D deficiency, unspecified; R26.9 Unspecified abnormalities of gait and mobility; M19.90 Unspecified osteoarthritis, unspecified site; Z91.19 Patient's noncompliance with other medical treatment and regimen; Z91.81 History of falling